=== PATIENT | male | born 1960 | race Caucasian/White ===

== ENCOUNTER 2020-12-27 09:16 | Inpatient (IN) | payer BC, MEDICAID ==
[~2020-12-27] VITALS: Ht 170.2 cm; Wt 106.3 kg
[~2020-12-27 09:16] MED LIST: heparin 10,000 units/1 ML INJ ONE; papaverine 30 mg/ml 2ml inj. ONE
[2020-12-27] MEDS ORDERED: aspirin 81mg tab.chew PO ONE (09:30)
[2020-12-27] MEDS: nitroGLYCERIN 0.4mg SUBLingual tab SL PRN (09:45)
[2020-12-27 09:52] LABS: BASOPHILS % (AUTO) 0.6 % (0-1); EOSINOPHILS # (AUTO) 0.3 X10'3 (0-0.9); EOSINOPHILS % (AUTO) 5.6 % (0-6); HEMATOCRIT 44.3 % (42.0-52.0); HEMOGLOBIN 14.6 g/dl (14.0-17.9); LYMPHOCYTES # (AUTO) 1.2 X10'3 (1.1-4.8); LYMPHOCYTES % (AUTO) 22.3 % (21-51); MEAN CORPUSCULAR HEMOGLOBIN 30.3 PG (27.0-31.0); MEAN CORPUSCULAR VOLUME 91.7 FL (78-98); MEAN PLATELET VOLUME 9.5 FL (7.4-10.4); MONOCYTES # (AUTO) 0.6 X10'3 (0-0.9); MONOCYTES % (AUTO) 10.3 % (2-12); NEUTROPHILS # (AUTO) 3.3 X10'3 (1.8-7.7); NEUTROPHILS % (AUTO) 61.2 % (42-75); PLATELET COUNT 150 X10'3 (140-440); RED BLOOD COUNT 4.83 X10'6 (4.70-6.10); RED CELL DISTRIBUTION WIDTH 14.7 % (11.5-14.5); WHITE BLOOD COUNT 5.5 X10'3 (4.5-11.0)
[2020-12-27 10:07] LABS: ALANINE AMINOTRANSFERASE 45 U/L (12-78); ALBUMIN 4.4 G/DL (3.4-5.0); ALBUMIN/GLOBULIN RATIO 1.1 (1.1-1.5); ALKALINE PHOSPHATASE 94 IU/L (46-116); ANION GAP 9 (8-16); ASPARTATE AMINO TRANSFERASE 21 U/L (10-37); BLOOD UREA NITROGEN 21 MG/DL (7-18); BUN/CREATININE RATIO 18.3 (5.4-32.0); CALCIUM 9.5 MG/DL (8.5-10.1); CHLORIDE 104 MMOL/L (99-107); CREATININE 1.15 MG/DL (0.60-1.10); GLUCOSE 115 MG/DL (70-104); POTASSIUM 4.4 MMOL/L (3.5-5.1); SODIUM 142 MMOL/L (135-145); TOTAL PROTEIN 8.5 G/DL (6.4-8.2); eGFR 65 ML/MIN
--- NOTE | 2020-12-27 10:19 | NUR ---
Pt states that he is feeling okay after the nitro. Pt stood at bedside to use the urinal without difficulty.
[2020-12-27] MEDS ORDERED: nitroGLYCERIN 0.4mg/hour patch TD ONE (10:25)
[2020-12-27] MEDS ORDERED: heparin 10,000 units/1 ML INJ IV ONE (10:25)
[2020-12-27 10:51] LABS: PARTIAL THROMBOPLASTIN TIME 27 SECONDS (22-32)
[2020-12-27] MEDS: heparin 25,000 UNIT/250ml bag 250 ML IV SCH (11:21)
[2020-12-27] MEDS ORDERED: NITR0.4T48 SL (11:27)
[2020-12-27] MEDS ORDERED: CARV6.253 PO (11:27)
[2020-12-27] MEDS ORDERED: ASPI-1475 PO (11:27)
[2020-12-27] MEDS ORDERED: ATOR-2 PO (11:27)
[2020-12-27] MEDS ORDERED: CLOP75TA34 PO (11:27)
[2020-12-27] MEDS ORDERED: FURO40TA4 PO (11:27)
[2020-12-27] MEDS ORDERED: SPIR25TA5 PO (11:27)
[2020-12-27] MEDS ORDERED: LISI10TA27 PO (11:27)
[2020-12-27] MEDS ORDERED: acetaminophen 325mg tablet PO PRN (13:55)
[2020-12-27] MEDS ORDERED: mag hydrox/Alum hydrox/simeth 30ml oral suspension PO PRN (13:55)
[2020-12-27] MEDS ORDERED: magnesium hydroxide 30ml (MOM) UD suspension PO PRN (13:55)
[2020-12-27] MEDS ORDERED: ondansetron/PF 4mg/2ml inj IV PRN (13:55)
[2020-12-27] MEDS ORDERED: morphine 2 MG/ML inj. syringe IV PRN ×2 (13:55)
[2020-12-27] MEDS ORDERED: nitroGLYCERIN 0.4mg SUBLingual tab SL PRN (14:05)
[2020-12-27] MEDS: nitroGLYCERIN-Tridil 50MG/D5W 250 ML IV SCH (14:41)
[2020-12-27] MEDS: normal saline 1000ml 1,000 ML IV SCH ×2 (14:41→23:55)
--- NOTE | 2020-12-27 14:54 | NUR ---
Nitro patch removed per Dr Samaniego when Nitro drip was started.
[2020-12-27 15:00] VITALS: BP 123/76
--- NOTE | 2020-12-27 15:20 | NUR ---
Patient brought up from ED by Renetta OROZCO. Report recieved. Patient transferred from [facility] to hospital bed. quality assurance monitor body placed onto patient. Heparin, nitro, and NS drip running per md orders. 2 RN skin check, MRSA swab, and DART completed
[2020-12-27] MEDS ORDERED: MESSAGE TO NURSING PO ONE ×4 (16:05)
[2020-12-27 17:14] LABS: HEMOGLOBIN A1C 5.5 % (4.5-6.2)
[2020-12-27 17:14] LABS: ABG BASE EXCESS -2.5 mmol/L (-2.0-2.0); ABG HCO3 21.5 mmol/L (22.0-26.0); ABG OXYGEN SATURATION 97.2 % (94-97); ABG PCO2 (T) 34.8 mmHg (35.0-48.0); ABG PO2 (T) 93.3 mmHg (75.0-100.0); ALLEN'S TEST POSITIVE; FCOHb 0.4 % (0.0-3.9); FMetHb 0.3 % (0.0-1.5); FO2Hb 96.5 % (94-97)
[2020-12-27 17:19] LABS: PARTIAL THROMBOPLASTIN TIME 36 SECONDS (22-32)
--- NOTE | 2020-12-27 17:44 | NUR ---
Paged respiratory regarding LFT's and ABG's to be done prior to CABG. Vascular also notified for US of carotid and vein mapping.
[2020-12-27 18:00] VITALS: BP 98/58
--- NOTE | 2020-12-27 18:10 | NUR ---
Preceptee documentation: I have reviewed and agree with all interventions, assessments performed and documented by ERNESTO Harrison. Preceptee Medication Administration: For this medication-pass time frame, all medication were reviewed, dispensed, administered and documented per hospital policy by ERNESTO Harrison.
--- NOTE | 2020-12-27 18:21 | NUR ---
Patient in room PCU 3018. I have received report from Kassy and had the opportunity to ask questions and assume patient care.
--- NOTE | 2020-12-27 18:30 | NUR ---
Problems reprioritized. Patient report given, questions answered & plan of care reviewed with ERNESTO Pena.
[2020-12-27] MEDS: heparin 10,000 units/1 ML INJ IV PRN ×2 (18:36→18:41)
[2020-12-27 20:00] VITALS: BP 122/84
[2020-12-27] MEDS: atorvastatin 20mg tablet PO SCH (20:14)
[2020-12-27 22:00] VITALS: BP 132/71
--- NOTE | 2020-12-27 23:18 | NUR ---
Problems reprioritized. Patient report given, questions answered & plan of care reviewed with
[2020-12-28] VITALS (8 sets, daily range): BP systolic 92–134; BP diastolic 56–79
--- NOTE | 2020-12-28 00:15 | NUR ---
I obtained patient from Jean RN at this time, patient is in stable condition and I agree with all physical assessment findings that Jean acquired.
[2020-12-28 01:03] LABS: ALBUMIN 3.4 G/DL (3.4-5.0); ANION GAP 11 (8-16); BLOOD UREA NITROGEN 30 MG/DL (7-18); BUN/CREATININE RATIO 28.3 (5.4-32.0); CALCIUM 8.8 MG/DL (8.5-10.1); CHLORIDE 104 MMOL/L (99-107); CREATININE 1.06 MG/DL (0.60-1.10); GLUCOSE 117 MG/DL (70-104); POTASSIUM 3.8 MMOL/L (3.5-5.1); SODIUM 140 MMOL/L (135-145); TOTAL CARBON DIOXIDE 24.9 MMOL/L (24-32); eGFR 71 ML/MIN
[2020-12-28 01:19] LABS: BASOPHILS % (AUTO) 0.5 % (0-1); EOSINOPHILS # (AUTO) 0.3 X10'3 (0-0.9); EOSINOPHILS % (AUTO) 4.5 % (0-6); HEMATOCRIT 37.4 % (42.0-52.0); HEMOGLOBIN 12.6 g/dl (14.0-17.9); LYMPHOCYTES # (AUTO) 1.7 X10'3 (1.1-4.8); LYMPHOCYTES % (AUTO) 29.3 % (21-51); MEAN CORPUSCULAR HEMOGLOBIN 30.6 PG (27.0-31.0); MEAN CORPUSCULAR HGB CONC 33.7 g/dL (33.0-36.5); MEAN CORPUSCULAR VOLUME 90.8 FL (78-98); MEAN PLATELET VOLUME 9.7 FL (7.4-10.4); MONOCYTES # (AUTO) 0.7 X10'3 (0-0.9); MONOCYTES % (AUTO) 11.8 % (2-12); NEUTROPHILS # (AUTO) 3.2 X10'3 (1.8-7.7); NEUTROPHILS % (AUTO) 53.9 % (42-75); PLATELET COUNT 126 X10'3 (140-440); RED BLOOD COUNT 4.12 X10'6 (4.70-6.10); RED CELL DISTRIBUTION WIDTH 14.9 % (11.5-14.5); WHITE BLOOD COUNT 5.8 X10'3 (4.5-11.0)
--- NOTE | 2020-12-28 06:00 | NUR ---
Patient in room PCU 3018. I have received report from andrew and had the opportunity to ask questions and assume patient care.
--- NOTE | 2020-12-28 06:24 | NUR ---
Problems reprioritized. Patient report given, questions answered & plan of care reviewed with Kassy Jang.
--- NOTE | 2020-12-28 06:30 | NUR ---
Patient in room PCU 3018. I have received report from ERNESTO Davis and had the opportunity to ask questions and assume patient care.
[2020-12-28] MEDS: aspirin 81mg tablet.DR PO SCH (07:13)
[2020-12-28] MEDS: lisinopril 10 MG tablet PO SCH (07:14)
[2020-12-28] MEDS: spironolactone 25 MG tablet PO SCH (07:14)
[2020-12-28] MEDS: normal saline 1000ml 1,000 ML IV SCH ×2 (09:37→12:18)
[2020-12-28] MEDS: heparin 10,000 units/1 ML INJ IV PRN ×2 (09:45→22:15)
[2020-12-28] MEDS ORDERED: MESSAGE TO NURSING PO ONE (10:00)
[2020-12-28] MEDS: nitroGLYCERIN 0.4mg SUBLingual tab SL PRN ×3 (11:13→23:00)
--- NOTE | 2020-12-28 11:30 | NUR ---
Recieved a telephone order from Salena Barfield MD, to order a MG when the next ptt is drawn at 1545.
[2020-12-28] MEDS: heparin 25,000 UNIT/250ml bag 250 ML IV SCH ×2 (13:39→14:54)
--- NOTE | 2020-12-28 18:17 | NUR ---
Patient in room PCU 3018. I have received report from Christy OROZCO and had the opportunity to ask questions and assume patient care.
[2020-12-28] MEDS: atorvastatin 20mg tablet PO SCH (20:11)
[2020-12-29] VITALS (9 sets, daily range): BP systolic 90–138; BP diastolic 48–91
[2020-12-29] MEDS: normal saline 1000ml 1,000 ML IV SCH ×2 (02:32→22:38)
[2020-12-29 06:15] LABS: BASOPHILS % (AUTO) 0.6 % (0-1); EOSINOPHILS # (AUTO) 0.3 X10'3 (0-0.9); EOSINOPHILS % (AUTO) 5.3 % (0-6); HEMATOCRIT 38.7 % (42.0-52.0); HEMOGLOBIN 12.8 g/dl (14.0-17.9); LYMPHOCYTES # (AUTO) 1.4 X10'3 (1.1-4.8); LYMPHOCYTES % (AUTO) 24.3 % (21-51); MEAN CORPUSCULAR HEMOGLOBIN 30.6 PG (27.0-31.0); MEAN CORPUSCULAR HGB CONC 33.1 g/dL (33.0-36.5); MEAN CORPUSCULAR VOLUME 92.3 FL (78-98); MEAN PLATELET VOLUME 9.8 FL (7.4-10.4); MONOCYTES # (AUTO) 0.5 X10'3 (0-0.9); MONOCYTES % (AUTO) 9.8 % (2-12); NEUTROPHILS # (AUTO) 3.3 X10'3 (1.8-7.7); PLATELET COUNT 130 X10'3 (140-440); RED BLOOD COUNT 4.19 X10'6 (4.70-6.10); RED CELL DISTRIBUTION WIDTH 15.1 % (11.5-14.5); WHITE BLOOD COUNT 5.6 X10'3 (4.5-11.0)
[2020-12-29 06:20] LABS: ALBUMIN 3.8 G/DL (3.4-5.0); ANION GAP 8 (8-16); BLOOD UREA NITROGEN 22 MG/DL (7-18); BUN/CREATININE RATIO 19.6 (5.4-32.0); CHLORIDE 106 MMOL/L (99-107); CREATININE 1.12 MG/DL (0.60-1.10); GLUCOSE 110 MG/DL (70-104); POTASSIUM 4.6 MMOL/L (3.5-5.1); SODIUM 140 MMOL/L (135-145); eGFR 67 ML/MIN
--- NOTE | 2020-12-29 06:30 | NUR ---
Patient in room PCU 3018. I have received report from ERNESTO Romero and had the opportunity to ask questions and assume patient care.
--- NOTE | 2020-12-29 06:45 | NUR ---
Problems reprioritized. Patient report given, questions answered & plan of care reviewed with Sasha OROZCO.
[2020-12-29] MEDS: nitroGLYCERIN 0.4mg SUBLingual tab SL PRN ×3 (07:25→18:44)
[2020-12-29] MEDS: lisinopril 10 MG tablet PO SCH (07:27)
[2020-12-29] MEDS: spironolactone 25 MG tablet PO SCH (07:27)
[2020-12-29] MEDS: aspirin 81mg tablet.DR PO SCH (07:27)
[2020-12-29] MEDS ORDERED: MESSAGE TO NURSING PO ONE ×2 (09:45)
--- NOTE | 2020-12-29 10:05 | NUR ---
PAGED OUT TO RT FOR PFT's. NOTIFIED RT THAT CABG MAY BE SOONER THAN WEDNESDAY.
[2020-12-29] MEDS ORDERED: ringers solution, lacted 1,000 ML IV ONE (10:55)
[2020-12-29] MEDS: heparin 25,000 UNIT/250ml bag 250 ML IV SCH ×2 (12:24→16:57)
[2020-12-29] MEDS: nitroGLYCERIN-Tridil 50MG/D5W 250 ML IV SCH (14:00)
[2020-12-29] MEDS: heparin 10,000 units/1 ML INJ IV PRN (16:55)
--- NOTE | 2020-12-29 18:11 | NUR ---
Problems reprioritized. Patient report given, questions answered & plan of care reviewed with ERNESTO Katz and ERNESTO Zepeda.
--- NOTE | 2020-12-29 18:15 | NUR ---
Patient in room PCU 3018. I have received report from ERNESTO Baez and had the opportunity to ask questions and assume patient care.
--- NOTE | 2020-12-29 18:30 | NUR ---
Patient in room PCU 3018. I have received report from Koby OROZCO and had the opportunity to ask questions and assume patient care with Gianna OROZCO
--- NOTE | 2020-12-29 18:32 | NUR ---
spoke with Dr. Barfield regarding heparin gtt. She does want it to run until surgery.
--- NOTE | 2020-12-29 18:40 | NUR ---
Problems reprioritized. Patient report given, questions answered & plan of care reviewed with ERNESTO Pena.
[2020-12-29] MEDS: mupirocin 2% nasal ointment 1gm UD NS SCH (20:51)
[2020-12-29] MEDS: atorvastatin 20mg tablet PO SCH (20:52)
[2020-12-30] VITALS (19 sets, daily range): BP systolic 94–134; BP diastolic 52–79
--- NOTE | 2020-12-30 01:25 | NUR ---
PTT 55, therapeutic. No changes to rate of heparin infusion at this time.
[2020-12-30] MEDS ORDERED: MESSAGE TO NURSING PO ONE ×2 (01:30→05:30)
[2020-12-30] MEDS: nitroGLYCERIN 0.4mg SUBLingual tab SL PRN ×3 (03:05→06:22)
[2020-12-30] MEDS ORDERED: MALTODEXTRIN/FRUCTOSE 0.68 KCAL/ML LIQUID 296ML BOTTLE PO ONE (03:30)
[2020-12-30] MEDS ORDERED: dextrose 50%-water 50ml dispensing syringe IV PRN ×2 (05:30→12:05)
[2020-12-30] MEDS ORDERED: cefazolin/dext.iso 2gm/100ml 100 ML IV ONE (05:30)
[2020-12-30] MEDS ORDERED: insulin glargine (Lantus) pen - multi-dose SQ PRN ×2 (05:30→12:05)
[2020-12-30] MEDS ORDERED: gabapentin 400mg capsule PO ONE (05:30)
[2020-12-30] MEDS ORDERED: Insulin Reg/NS 100units/100mL 100 ML IV SCH ×2 (05:30→12:05)
--- NOTE | 2020-12-30 05:33 | NUR ---
RN noted that carvedilol was on med rec but pt was not getting it here. It is coded as an allergy. Pt stated that he has only ever been allergic to penicillin and pineapple on one occasion after drinking over 20 cups of it. He has had small amounts of pineapple since with no adverse reactions.
--- NOTE | 2020-12-30 05:36 | NUR ---
PATIENT REQUESTED TO LET DAY SHIFT KNOW THAT SISTER CLEOPATRA BERMAN WILL BE IN THE PARKING LOT WAITING FOR PT TO GET OUT OF SURGERY. PT WOULD LIKE TO SEE HER WHEN HE WAKES UP. [phone] IS HER PHONE NUMBER.
--- NOTE | 2020-12-30 05:58 | NUR ---
[place]rientee documentation: I have reviewed and agree with all interventions, assessments performed and documented by Gianna OROZCO.Orientjennifer Medication Administration: For this medication-pass time frame, all medication were reviewed, dispensed, administered and documented per hospital policy by Gianna OROZCO .
[2020-12-30] MEDS ORDERED: LORazepam 2 mg/ml vial IV ONE (06:00)
[2020-12-30] MEDS ORDERED: famotidine/PF 10 mg/ml inj IV ONE (06:00)
--- NOTE | 2020-12-30 06:13 | NUR ---
Problems reprioritized. Patient report given, questions answered & plan of care reviewed with ERNESTO Baez.
--- NOTE | 2020-12-30 06:18 | NUR ---
Problems reprioritized. Patient report given, questions answered & plan of care reviewed with Koby OROZCO.
--- NOTE | 2020-12-30 06:30 | NUR ---
Patient in room PCU 3018. I have received report from Gianna RN and ERNESTO Zepeda and had the opportunity to ask questions and assume patient care.
[2020-12-30 06:35] LABS: BASOPHILS % (AUTO) 0.5 % (0-1); EOSINOPHILS # (AUTO) 0.2 X10'3 (0-0.9); EOSINOPHILS % (AUTO) 4.2 % (0-6); HEMATOCRIT 34.2 % (42.0-52.0); HEMOGLOBIN 11.5 g/dl (14.0-17.9); LYMPHOCYTES # (AUTO) 1.1 X10'3 (1.1-4.8); LYMPHOCYTES % (AUTO) 28.8 % (21-51); MEAN CORPUSCULAR HEMOGLOBIN 30.6 PG (27.0-31.0); MEAN CORPUSCULAR HGB CONC 33.7 g/dL (33.0-36.5); MEAN CORPUSCULAR VOLUME 90.8 FL (78-98); MEAN PLATELET VOLUME 9.4 FL (7.4-10.4); MONOCYTES # (AUTO) 0.4 X10'3 (0-0.9); MONOCYTES % (AUTO) 9.6 % (2-12); NEUTROPHILS # (AUTO) 2.1 X10'3 (1.8-7.7); NEUTROPHILS % (AUTO) 56.9 % (42-75); PLATELET COUNT 105 X10'3 (140-440); RED BLOOD COUNT 3.76 X10'6 (4.70-6.10); RED CELL DISTRIBUTION WIDTH 14.9 % (11.5-14.5); WHITE BLOOD COUNT 3.7 X10'3 (4.5-11.0)
[2020-12-30 06:48] LABS: ALBUMIN 3.4 G/DL (3.4-5.0); ANION GAP 10 (8-16); BLOOD UREA NITROGEN 15 MG/DL (7-18); BUN/CREATININE RATIO 13.9 (5.4-32.0); CALCIUM 8.5 MG/DL (8.5-10.1); CHLORIDE 107 MMOL/L (99-107); CREATININE 1.08 MG/DL (0.60-1.10); GLUCOSE 211 MG/DL (70-104); SODIUM 142 MMOL/L (135-145); TOTAL CARBON DIOXIDE 24.8 MMOL/L (24-32); eGFR 70 ML/MIN
[2020-12-30] MEDS ORDERED: heparin 10,000 units/1 ML INJ IR ONE (07:00)
[2020-12-30] MEDS ORDERED: papaverine 30 mg/ml 2ml inj. IA ONE (07:00)
[2020-12-30] MEDS ORDERED: protamine sulf. 10mg/ml inj. IV ONE (07:01)
[2020-12-30] MEDS ORDERED: sevoflurane 250ml liquid IH ONE (07:01)
[2020-12-30] MEDS ORDERED: DOPamine/D5W 400mg/250ml bag IV ONE (07:01)
[2020-12-30] MEDS ORDERED: MIDAZolam 1mg/ml 10ml vial ONE (07:06)
[2020-12-30] MEDS ORDERED: SUFENTANIL CITRATE 50 MCG/ML 2ml ampule IV ONE (07:06)
[2020-12-30] MEDS ORDERED: propofol inj 20 ML IV ONE (07:19)
[2020-12-30] MEDS ORDERED: rocuronium 10mg/ml inj IV ONE ×3 (07:19→11:37)
[2020-12-30] MEDS ORDERED: ePHEDrine 50MG/ML INJ. ONE (07:19)
[2020-12-30 07:55] LABS: ABG BASE EXCESS -0.8 mmol/L (-2.0-2.0); ABG HCO3 25.1 mmol/L (22.0-26.0); ABG OXYGEN SATURATION 99.7 % (94-97); ABG PCO2 46.4 mmHg (35.0-48.0); ABG PO2 346.1 mmHg (75.0-100.0); CL (ABG) 106 mmol/L (98-110); FMetHb 0.3 % (0.0-1.5); FO2Hb 98.4 % (94-97); GLUCOSE (ABG) 122 mg/dl (70-105); K (ABG) 4.1 mmol/L (3.5-5.0); TOTAL HEMOGLOBIN 12.1 G/dl (14.0-18.0)
[2020-12-30] MEDS ORDERED: calcium chloride 100 MG/1 ML inj IV ONE (08:00)
[2020-12-30] MEDS: lisinopril 10 MG tablet PO SCH (08:00)
[2020-12-30] MEDS ORDERED: albumin (human) 25% 100 ML IV solution IV ONE (08:00)
[2020-12-30] MEDS: aspirin 81mg tablet.DR PO SCH (08:00)
[2020-12-30] MEDS: mupirocin 2% nasal ointment 1gm UD NS SCH ×2 (08:00→19:33)
[2020-12-30] MEDS ORDERED: LIDOcaine 2% (20 mg/ml) 5ml cardiac syringe ONE (08:00)
[2020-12-30] MEDS ORDERED: magnesium 1 GM/2 ML inj ONE (08:00)
[2020-12-30] MEDS: spironolactone 25 MG tablet PO SCH (08:00)
[2020-12-30] MEDS ORDERED: methylPREDNISolone sod succ 1000mg vial ONE (08:00)
[2020-12-30] MEDS ORDERED: heparin 1,000 units/ml 10ml inj ONE (08:00)
[2020-12-30] MEDS ORDERED: sodium bicarbonate (8.4%) 1 mEq/ml syringe ONE (08:00)
[2020-12-30] MEDS ORDERED: aminocaproic acid 250 MG/1 ML inj. ONE (08:00)
[2020-12-30] MEDS ORDERED: heparin 10,000 units/1 ML INJ ONE (08:00)
[2020-12-30 09:26] LABS: ABG BASE EXCESS -1.7 mmol/L (-2.0-2.0); ABG OXYGEN SATURATION 99.7 % (94-97); ABG PCO2 33.1 mmHg (35.0-48.0); ABG PO2 454.3 mmHg (75.0-100.0); CL (ABG) 103 mmol/L (98-110); FCOHb 0.3 % (0.0-3.9); FMetHb 0.3 % (0.0-1.5); FO2Hb 99.1 % (94-97); GLUCOSE (ABG) 92 mg/dl (70-105); IONIZED CA (ABG) 1.06 mmol/L (1.10-1.43); K (ABG) 4.2 mmol/L (3.5-5.0)
[2020-12-30 09:56] LABS: ABG BASE EXCESS VENOUS -2.6 mmol/L; ABG HCO3 VENOUS 23.9 mmol/L; ABG PCO2 VENOUS 49.3 mmHg; ABG PO2 VENOUS 49.6 mmHg; CL (ABG) 100 mmol/L (98-110); FHHb VENOUS 17.6 %; FO2Hb VENOUS 81.4 %; GLUCOSE (ABG) 97 mg/dl (70-105); IONIZED CA (ABG) 1.15 mmol/L (1.10-1.43); K (ABG) 4.5 mmol/L (3.5-5.0); TOTAL HEMOGLOBIN 10.2 G/dl (14.0-18.0)
[2020-12-30 10:49] LABS: ABG BASE EXCESS 2.4 mmol/L (-2.0-2.0); ABG HCO3 28.1 mmol/L (22.0-26.0); ABG OXYGEN SATURATION 99.6 % (94-97); ABG PCO2 49.8 mmHg (35.0-48.0); ABG PO2 396.3 mmHg (75.0-100.0); CL (ABG) 101 mmol/L (98-110); FCOHb 0.6 % (0.0-3.9); GLUCOSE (ABG) 135 mg/dl (70-105); IONIZED CA (ABG) 1.34 mmol/L (1.10-1.43); K (ABG) 4.2 mmol/L (3.5-5.0); TOTAL HEMOGLOBIN 9.4 G/dl (14.0-18.0)
[2020-12-30 11:13] LABS: ABG BASE EXCESS VENOUS -1.6 mmol/L; ABG HCO3 VENOUS 24.3 mmol/L; ABG PCO2 VENOUS 46.2 mmHg; ABG PO2 VENOUS 41.9 mmHg; CL (ABG) 103 mmol/L (98-110); FCOHb VENOUS 1.1 %; FHHb VENOUS 25.3 %; FMetHb VENOUS 0.1 %; FO2Hb VENOUS 73.5 %; GLUCOSE (ABG) 135 mg/dl (70-105); IONIZED CA (ABG) 1.19 mmol/L (1.10-1.43); K (ABG) 4.5 mmol/L (3.5-5.0); TOTAL HEMOGLOBIN 9.5 G/dl (14.0-18.0)
[2020-12-30 11:17] LABS: ACTIVATED CLOTTING TIME 139 SEC (101-148)
[2020-12-30] MEDS ORDERED: sodium phosphate inj. 15 MMOL in dextrose 5%-water 250 ML IV PRN (12:05)
[2020-12-30] MEDS ORDERED: DOPamine 400mg/D5W 250ml 250 ML IV PRN (12:05)
[2020-12-30] MEDS ORDERED: morphine 4 MG/ML inj SYRINge IV PRN (12:05)
[2020-12-30] MEDS ORDERED: potassium Cl 40MEQ/250ML bag 250 ML IV PRN (12:05)
[2020-12-30] MEDS ORDERED: niCARDipine-NS 40mg/200ml IVPB 200 ML IV PRN (12:05)
[2020-12-30] MEDS ORDERED: albumin (Human) 5% 250ml 250 ML IV PRN (12:05)
[2020-12-30] MEDS ORDERED: magnesium 4gm in 100ml NS 100 ML IV PRN (12:05)
[2020-12-30] MEDS ORDERED: pantoprazole 40 MG vial IV ONE (12:05)
[2020-12-30] MEDS ORDERED: Neutra Phos packet PO PRN (12:05)
[2020-12-30] MEDS ORDERED: bisacodyl 10mg suppository rectal RC PRN (12:05)
[2020-12-30] MEDS ORDERED: potassium Cl 40MEQ/1/2NS 520ml 520 ML IV PRN (12:05)
[2020-12-30] MEDS ORDERED: potassium CL 10mEq/100ml bag 100 ML IV PRN (12:05)
[2020-12-30] MEDS ORDERED: magnesium citrate 296ml oral solution PO PRN (12:05)
[2020-12-30] MEDS ORDERED: mineral oil 133ml enema RC PRN (12:05)
[2020-12-30] MEDS ORDERED: magnesium hydroxide 30ml (MOM) UD suspension PO PRN (12:05)
[2020-12-30] MEDS ORDERED: metoclopramide 5 mg/ml inj IV PRN (12:05)
[2020-12-30] MEDS ORDERED: normal saline 250ml IV soln 250 ML IV PRN (12:05)
[2020-12-30] MEDS ORDERED: acetaminophen 325mg tablet PO PRN ×2 (12:05)
[2020-12-30] MEDS ORDERED: sodium phosphate inj. 30 MMOL in dextrose 5%-water 250 ML IV PRN (12:05)
[2020-12-30] MEDS ORDERED: ondansetron/PF 4mg/2ml inj IV PRN (12:05)
[2020-12-30] MEDS ORDERED: potassium Cl 20 mEq SR tablet PO PRN (12:05)
[2020-12-30] MEDS ORDERED: nitroGLYCERIN-Tridil 50MG/D5W 250 ML IV PRN (12:05)
--- NOTE | 2020-12-30 12:15 | NUR ---
Received to room , accompanied by MD Barfield and CELINA Cronin and surgical crew. Placed on ventilator, to library assistant, arterial line and PA line pressure monitored. Chest tubes to suction at 20 cm. Gastelum cath to gravity drainage. Dressings are dry and intact. See assessment record. All vasoactive drugs (Dopamine) are infusing via central line.
--- NOTE | 2020-12-30 12:16 | NUR ---
CABG Consult: Pt s/p CABGx3; would benefit from CABG/HH diet eds once stable as medically indicated post-op. Addendum: 12/30/20 at [address] Amended: Links added.
[2020-12-30 12:24] LABS: BASOPHILS % (AUTO) 0.2 % (0-1); EOSINOPHILS % (AUTO) 0.6 % (0-6); HEMOGLOBIN 13.4 g/dl (14.0-17.9); LYMPHOCYTES # (AUTO) 0.5 X10'3 (1.1-4.8); LYMPHOCYTES % (AUTO) 6.8 % (21-51); MEAN CORPUSCULAR HEMOGLOBIN 30.4 PG (27.0-31.0); MEAN CORPUSCULAR HGB CONC 32.7 g/dL (33.0-36.5); MEAN CORPUSCULAR VOLUME 92.8 FL (78-98); MEAN PLATELET VOLUME 9.5 FL (7.4-10.4); MONOCYTES # (AUTO) 0.4 X10'3 (0-0.9); MONOCYTES % (AUTO) 6.4 % (2-12); NEUTROPHILS # (AUTO) 5.9 X10'3 (1.8-7.7); PLATELET COUNT 89 X10'3 (140-440); RED BLOOD COUNT 4.42 X10'6 (4.70-6.10); RED CELL DISTRIBUTION WIDTH 15.2 % (11.5-14.5); WHITE BLOOD COUNT 6.9 X10'3 (4.5-11.0)
[2020-12-30 12:25] LABS: ABG HCO3 23.1 mmol/L (22.0-26.0); ABG OXYGEN SATURATION 95.4 % (94-97); ABG PCO2 (T) 44.9 mmHg (35.0-48.0); ABG PO2 (T) 83.2 mmHg (75.0-100.0); FCOHb 0.7 % (0.0-3.9); FMetHb 0.5 % (0.0-1.5); FO2Hb 94.3 % (94-97); PATIENT TEMPERATURE 36.8; PEEP 5 cm H2O; RESPIRATORY RATE 12 b/min; TIDAL VOLUME 706 mL
[2020-12-30 12:37] LABS: PARTIAL THROMBOPLASTIN TIME 30 SECONDS (22-32)
[2020-12-30 12:39] LABS: ALANINE AMINOTRANSFERASE 48 U/L (12-78); ALBUMIN 3.5 G/DL (3.4-5.0); ALBUMIN/GLOBULIN RATIO 1.5 (1.1-1.5); ALKALINE PHOSPHATASE 55 IU/L (46-116); ANION GAP 10 (8-16); ASPARTATE AMINO TRANSFERASE 99 U/L (10-37); BILIRUBIN,TOTAL 1.4 MG/DL (0.1-1.0); BLOOD UREA NITROGEN 15 MG/DL (7-18); BUN/CREATININE RATIO 14.2 (5.4-32.0); CALCIUM 9.2 MG/DL (8.5-10.1); CHLORIDE 106 MMOL/L (99-107); CREATININE 1.06 MG/DL (0.60-1.10); GLUCOSE 162 MG/DL (70-104); MAGNESIUM 2.6 MG/DL (1.5-2.4); PHOSPHORUS 2.6 MG/DL (2.3-4.5); SODIUM 142 MMOL/L (135-145); TOTAL CARBON DIOXIDE 26.4 MMOL/L (24-32); TOTAL PROTEIN 5.9 G/DL (6.4-8.2); eGFR 71 ML/MIN
[2020-12-30 12:41] LABS: POTASSIUM 4.4 MMOL/L (3.5-5.1)
[2020-12-30] MEDS: gabapentin 300mg capsule PO SCH ×2 (13:11→20:52)
[2020-12-30] MEDS: potassium Cl 20mEq/100mL bag 100 ML IV PRN ×2 (13:13→14:09)
[2020-12-30] MEDS: sodium chloride 0.45% 1,000 ML IV SCH (13:26)
[2020-12-30] MEDS: morphine 4 MG/ML inj SYRINge IV PRN ×3 (14:01→19:30)
--- NOTE | 2020-12-30 14:32 | NUR ---
Sister Joy in to see pt. briefly.
[2020-12-30] MEDS: ceFAZolin/D5W- 1GM premix 50 ML IV SCH (15:24)
--- NOTE | 2020-12-30 16:24 | NUR ---
Pt. medicated with Morphine twice since surgery. Awake and wanting to try weaning parameters. Sp02 94% on 40% Fi02. Rt notified and on her way to see pt.
--- NOTE | 2020-12-30 18:13 | NUR ---
Problems reprioritized. Patient report given, questions answered & plan of care reviewed with Kendy OROZCO.
--- NOTE | 2020-12-30 18:30 | NUR ---
Patient in room ICU 2044. I have received report from ERNESTO Yoder and had the opportunity to ask questions and assume patient care.
[2020-12-30 18:53] LABS: BASOPHILS % (AUTO) 0 % (0-1); EOSINOPHILS % (AUTO) 0.1 % (0-6); HEMATOCRIT 37.3 % (42.0-52.0); HEMOGLOBIN 12.5 g/dl (14.0-17.9); LYMPHOCYTES # (AUTO) 0.4 X10'3 (1.1-4.8); LYMPHOCYTES % (AUTO) 3.6 % (21-51); MEAN CORPUSCULAR HEMOGLOBIN 30.4 PG (27.0-31.0); MEAN CORPUSCULAR HGB CONC 33.5 g/dL (33.0-36.5); MEAN CORPUSCULAR VOLUME 90.7 FL (78-98); MEAN PLATELET VOLUME 9.3 FL (7.4-10.4); MONOCYTES # (AUTO) 0.5 X10'3 (0-0.9); MONOCYTES % (AUTO) 5.4 % (2-12); NEUTROPHILS % (AUTO) 90.9 % (42-75); PLATELET COUNT 99 X10'3 (140-440); RED BLOOD COUNT 4.11 X10'6 (4.70-6.10); RED CELL DISTRIBUTION WIDTH 14.8 % (11.5-14.5); WHITE BLOOD COUNT 9.9 X10'3 (4.5-11.0)
[2020-12-30 18:56] LABS: ALBUMIN 3.7 G/DL (3.4-5.0); ANION GAP 12 (8-16); BLOOD UREA NITROGEN 16 MG/DL (7-18); BUN/CREATININE RATIO 11.8 (5.4-32.0); CALCIUM 8.5 MG/DL (8.5-10.1); CHLORIDE 107 MMOL/L (99-107); CREATININE 1.36 MG/DL (0.60-1.10); GLUCOSE 146 MG/DL (70-104); MAGNESIUM 2.3 MG/DL (1.5-2.4); PHOSPHORUS 3.6 MG/DL (2.3-4.5); POTASSIUM 4.8 MMOL/L (3.5-5.1); SODIUM 144 MMOL/L (135-145); TOTAL CARBON DIOXIDE 24.8 MMOL/L (24-32); eGFR 53 ML/MIN
[2020-12-30] MEDS: sennosides/docusate sodium tablet PO SCH (19:33)
[2020-12-30] MEDS: vancomycin/NS 1 GM ADD-VANTAGE 250 ML IV SCH (19:33)
[2020-12-30] MEDS: atorvastatin 10mg tablet PO SCH (20:52)
[2020-12-30] MEDS: magnesium 2GM in 50ml NS 50 ML IV PRN (20:52)
[2020-12-30 21:31] LABS: ABG BASE EXCESS -3.5 mmol/L (-2.0-2.0); ABG HCO3 21.8 mmol/L (22.0-26.0); ABG OXYGEN SATURATION 89.5 % (94-97); ABG PCO2 (T) 40.5 mmHg (35.0-48.0); ABG PO2 (T) 60.2 mmHg (75.0-100.0); FCOHb 0.3 % (0.0-3.9); FMetHb 0.4 % (0.0-1.5); FO2Hb 88.9 % (94-97); PATIENT TEMPERATURE 37.3; PEEP 5 cm H2O; TOTAL HEMOGLOBIN 13.1 G/dl (14.0-18.0)
[2020-12-30] MEDS: albuterol 2.5 MG/3 ML nebule NEB PRN (21:57)
[2020-12-31] VITALS (24 sets, daily range): BP systolic 104–151; BP diastolic 63–93
[2020-12-31] MEDS: ceFAZolin/D5W- 1GM premix 50 ML IV SCH ×4 (00:37→23:55)
[2020-12-31] MEDS: morphine 4 MG/ML inj SYRINge IV PRN ×2 (00:59→03:04)
[2020-12-31 03:07] LABS: BASOPHILS % (AUTO) 0 % (0-1); EOSINOPHILS % (AUTO) 0.1 % (0-6); HEMATOCRIT 34.4 % (42.0-52.0); HEMOGLOBIN 11.4 g/dl (14.0-17.9); LYMPHOCYTES # (AUTO) 0.4 X10'3 (1.1-4.8); LYMPHOCYTES % (AUTO) 3.8 % (21-51); MEAN CORPUSCULAR HEMOGLOBIN 30.5 PG (27.0-31.0); MEAN CORPUSCULAR HGB CONC 33.2 g/dL (33.0-36.5); MEAN CORPUSCULAR VOLUME 91.8 FL (78-98); MEAN PLATELET VOLUME 9.5 FL (7.4-10.4); MONOCYTES # (AUTO) 0.6 X10'3 (0-0.9); MONOCYTES % (AUTO) 6.2 % (2-12); NEUTROPHILS # (AUTO) 8.5 X10'3 (1.8-7.7); NEUTROPHILS % (AUTO) 89.9 % (42-75); PLATELET COUNT 87 X10'3 (140-440); RED BLOOD COUNT 3.74 X10'6 (4.70-6.10); RED CELL DISTRIBUTION WIDTH 15.6 % (11.5-14.5); WHITE BLOOD COUNT 9.4 X10'3 (4.5-11.0)
[2020-12-31 03:10] LABS: PARTIAL THROMBOPLASTIN TIME 28 SECONDS (22-32)
[2020-12-31 03:17] LABS: ALANINE AMINOTRANSFERASE 77 U/L (12-78); ALBUMIN 3.5 G/DL (3.4-5.0); ALBUMIN/GLOBULIN RATIO 1.3 (1.1-1.5); ALKALINE PHOSPHATASE 53 IU/L (46-116); ANION GAP 11 (8-16); ASPARTATE AMINO TRANSFERASE 256 U/L (10-37); BILIRUBIN,TOTAL 1.1 MG/DL (0.1-1.0); BLOOD UREA NITROGEN 20 MG/DL (7-18); BUN/CREATININE RATIO 15.4 (5.4-32.0); CHLORIDE 108 MMOL/L (99-107); GLUCOSE 136 MG/DL (70-104); MAGNESIUM 2.5 MG/DL (1.5-2.4); PHOSPHORUS 4.1 MG/DL (2.3-4.5); POTASSIUM 4.9 MMOL/L (3.5-5.1); SODIUM 143 MMOL/L (135-145); TOTAL CARBON DIOXIDE 24.1 MMOL/L (24-32); TOTAL PROTEIN 6.1 G/DL (6.4-8.2); eGFR 56 ML/MIN
[2020-12-31 03:24] LABS: CALCIUM 8.3 MG/DL (8.5-10.1)
--- NOTE | 2020-12-31 06:00 | NUR ---
Despite several reminders of keeping sternal precautions patient continues to move around abruptly and reposition by pulling on side rails. Will report to day shift RN to continue education of importance of keeping sternal precautions.
--- NOTE | 2020-12-31 06:12 | NUR ---
Problems reprioritized. Patient report given, questions answered & plan of care reviewed with ERNESTO Yoder.
--- NOTE | 2020-12-31 06:28 | NUR ---
Patient in room ICU 2044. I have received report from Kendy OROZCO and had the opportunity to ask questions and assume patient care. Addendum: 12/31/20 at 0672 by Beba Taylor RN Amended: Links added.
[2020-12-31] MEDS: sennosides/docusate sodium tablet PO SCH ×2 (07:00→20:00)
[2020-12-31] MEDS: mupirocin 2% nasal ointment 1gm UD NS SCH ×2 (07:00→20:48)
[2020-12-31] MEDS: gabapentin 300mg capsule PO SCH ×3 (07:00→20:48)
[2020-12-31] MEDS: aspirin 325mg tablet, delayed-release (Ecotrin) PO SCH (07:04)
[2020-12-31] MEDS: metoprolol tartrate 12.5mg (1/2 tablet) PO SCH ×2 (07:05→20:48)
[2020-12-31] MEDS: HYDROcodone/acetaminophen 10/325mg tab PO PRN ×3 (07:13→23:55)
[2020-12-31] MEDS: vancomycin/NS 1 GM ADD-VANTAGE 250 ML IV SCH ×2 (07:50→20:48)
[2020-12-31] MEDS ORDERED: pantoprazole 40mg Tablet.DR PO ONE (08:35)
[2020-12-31] MEDS ORDERED: ALPRAZolam 0.25mg tablet PO PRN (08:45)
[2020-12-31] MEDS ORDERED: dextrose ORAL solution 15 GM/59 ML bottle PO PRN ×2 (09:15)
[2020-12-31] MEDS ORDERED: glucagon, human recombinant 1mg kit SUBCUT PRN (09:15)
[2020-12-31] MEDS ORDERED: dextrose 50%-water 50ml dispensing syringe IV PRN ×2 (09:15)
--- NOTE | 2020-12-31 11:37 | NUR ---
Initial: Pt admit for NSTEMI and severe CAD. Pt POD # 1 s/p CABG x 3. Attempted bedside visit for nutrition therapy educations however pt sleeping. Will attempt education at another time. Pt with 100% PO intake on heart healthy diet prior to surgery and with 25% PO intake on full liquid diet this morning. Pt now on a no concentrated sweets diet, pending documentation of PO intake since diet advancement. LBM 12/29, receiving routine bowel care with additional PRN bowel care available. No nutrition intervention implemented at this time. Will continue to follow and monitor need for ONS/additional protein post-op pending further trends in PO intake. Recommendations: 1) Advance to heart healthy diet as medically indicated 2) Monitor need for ONS/additional protein 3) Routine bowel care 4) Scaled weights per rx 5) CABG/heart healthy nutrition therapy educations once stable Addendum: 12/31/20 at [address] Amended: Links added.
[2020-12-31] MEDS: lisinopril 5mg tablet PO SCH (11:47)
[2020-12-31] MEDS ORDERED: calcium carbonate 500mg chew tablet PO SCH (12:30)
--- NOTE | 2020-12-31 15:17 | NUR ---
Sumanth gonzalez lab nurse here to perform ACT and pull right kiesha sheath is ACT is WNL. Addendum: 12/31/20 at 1519 by Beba Taylor RN error-wrong pt.
[2020-12-31] MEDS ORDERED: calcium carbonate 500mg chew tablet PO PRN (16:10)
--- NOTE | 2020-12-31 18:14 | NUR ---
Problems reprioritized. Patient report given, questions answered & plan of care reviewed with Martita OROZCO.
--- NOTE | 2020-12-31 19:36 | NUR ---
183: Patient in room ICU 2044. I have received report from Beba OROZCO and had the opportunity to ask questions and assume patient care. 1935: Patient impulsive,attempting to get out of bed without assistance. Not following sternal precautions despite frequent reminders. Requiring close monitoring. Addendum: 12/31/20 at 1938 by Martita Coffey RN Amended: Links added.
[2020-12-31] MEDS: heparin, porcine 5000 units/ml vial SQ SCH (20:00)
[2020-12-31] MEDS: atorvastatin 10mg tablet PO SCH (20:49)
[2021-01-01] VITALS (24 sets, daily range): BP systolic 94–159; BP diastolic 53–83
--- NOTE | 2021-01-01 03:23 | NUR ---
Patient appears to be sleeping. Will continue to monitor closely
[2021-01-01 03:26] LABS: BASOPHILS % (AUTO) 0 % (0-1); EOSINOPHILS % (AUTO) 0 % (0-6); HEMATOCRIT 27.8 % (42.0-52.0); HEMOGLOBIN 9.1 g/dl (14.0-17.9); LYMPHOCYTES # (AUTO) 0.5 X10'3 (1.1-4.8); LYMPHOCYTES % (AUTO) 4.5 % (21-51); MEAN CORPUSCULAR HEMOGLOBIN 30.2 PG (27.0-31.0); MEAN CORPUSCULAR HGB CONC 32.6 g/dL (33.0-36.5); MEAN CORPUSCULAR VOLUME 92.6 FL (78-98); MEAN PLATELET VOLUME 9.3 FL (7.4-10.4); MONOCYTES # (AUTO) 1.4 X10'3 (0-0.9); MONOCYTES % (AUTO) 11.6 % (2-12); NEUTROPHILS # (AUTO) 10.1 X10'3 (1.8-7.7); NEUTROPHILS % (AUTO) 83.9 % (42-75); PLATELET COUNT 84 X10'3 (140-440); RED CELL DISTRIBUTION WIDTH 15.6 % (11.5-14.5)
[2021-01-01 03:33] LABS: ANION GAP 6 (8-16); BLOOD UREA NITROGEN 37 MG/DL (7-18); BUN/CREATININE RATIO 28.5 (5.4-32.0); CALCIUM 7.5 MG/DL (8.5-10.1); CHLORIDE 103 MMOL/L (99-107); GLUCOSE 149 MG/DL (70-104); MAGNESIUM 2.3 MG/DL (1.5-2.4); PHOSPHORUS 3.3 MG/DL (2.3-4.5); POTASSIUM 5.4 MMOL/L (3.5-5.1); SODIUM 136 MMOL/L (135-145); TOTAL CARBON DIOXIDE 26.8 MMOL/L (24-32); eGFR 56 ML/MIN
[2021-01-01] MEDS: magnesium 2GM in 50ml NS 50 ML IV PRN (05:26)
[2021-01-01] MEDS: HYDROcodone/acetaminophen 10/325mg tab PO PRN ×4 (05:26→18:28)
--- NOTE | 2021-01-01 05:39 | NUR ---
Support vest placed. Up to chair w/ 2 person assist. Tolerated well. Using IS and Flutter valve independently. Mohawk given for pain level of 4-6 per patient statement.
--- NOTE | 2021-01-01 06:24 | NUR ---
Problems reprioritized. Patient report given, questions answered & plan of care reviewed with Josee OROZCO.
--- NOTE | 2021-01-01 06:34 | NUR ---
Patient in room ICU 2044. I have received report from Martita OROZCO and had the opportunity to ask questions and assume patient care.
[2021-01-01] MEDS: sennosides/docusate sodium tablet PO SCH ×2 (07:39→18:41)
[2021-01-01] MEDS: gabapentin 300mg capsule PO SCH (07:39)
[2021-01-01] MEDS: aspirin 325mg tablet, delayed-release (Ecotrin) PO SCH (07:39)
[2021-01-01] MEDS: pantoprazole 40mg Tablet.DR PO SCH (07:39)
[2021-01-01] MEDS: mupirocin 2% nasal ointment 1gm UD NS SCH (07:39)
[2021-01-01] MEDS: metoprolol tartrate 12.5mg (1/2 tablet) PO SCH ×2 (07:43→18:41)
[2021-01-01] MEDS: lisinopril 5mg tablet PO SCH (07:43)
[2021-01-01] MEDS: heparin, porcine 5000 units/ml vial SQ SCH ×2 (07:44→18:42)
[2021-01-01] MEDS ORDERED: furosemide 40mg/4ml inj IV ONE (08:40)
[2021-01-01] MEDS: sodium chloride 0.45% 1,000 ML IV SCH (12:05)
--- NOTE | 2021-01-01 18:12 | NUR ---
Patient report given, questions answered & plan of care reviewed with Theodore OROZCO.
[2021-01-01 18:21] LABS: ALANINE AMINOTRANSFERASE 61 U/L (12-78); ALBUMIN 3.2 G/DL (3.4-5.0); ALKALINE PHOSPHATASE 53 IU/L (46-116); ANION GAP 4 (8-16); ASPARTATE AMINO TRANSFERASE 102 U/L (10-37); BILIRUBIN,TOTAL 0.8 MG/DL (0.1-1.0); BLOOD UREA NITROGEN 41 MG/DL (7-18); CHLORIDE 103 MMOL/L (99-107); CREATININE 1.17 MG/DL (0.60-1.10); GLUCOSE 159 MG/DL (70-104); MAGNESIUM 2.9 MG/DL (1.5-2.4); PHOSPHORUS 2.8 MG/DL (2.3-4.5); SODIUM 137 MMOL/L (135-145); TOTAL CARBON DIOXIDE 29.6 MMOL/L (24-32); TOTAL PROTEIN 6.4 G/DL (6.4-8.2); eGFR 64 ML/MIN
[2021-01-01] MEDS: atorvastatin 10mg tablet PO SCH (18:41)
[2021-01-01] MEDS ORDERED: insulin Lispro (HumaLOG) vial - multi-dose SQ SCH (20:55)
[2021-01-01] MEDS ORDERED: dextrose 50%-water 50ml dispensing syringe IV PRN ×2 (20:55)
[2021-01-01] MEDS ORDERED: glucagon, human recombinant 1mg kit SUBCUT PRN (20:55)
[2021-01-01] MEDS ORDERED: MESSAGE TO PHARMACY PO ONE (20:55)
[2021-01-01] MEDS ORDERED: dextrose ORAL solution 15 GM/59 ML bottle PO PRN ×2 (20:55)
[2021-01-01] MEDS ORDERED: insulin glargine (Lantus) pen - multi-dose SQ SCH (21:00)
[2021-01-01] MEDS: insulin Lispro (HumaLOG) vial - multi-dose SQ SCH (21:41)
[2021-01-02] VITALS (20 sets, daily range): BP systolic 101–150; BP diastolic 62–87
[2021-01-02] MEDS: HYDROcodone/acetaminophen 10/325mg tab PO PRN ×3 (01:22→13:20)
[2021-01-02] MEDS: albuterol 2.5 MG/3 ML nebule NEB PRN (03:24)
[2021-01-02 04:25] LABS: BASOPHILS % (AUTO) 0 % (0-1); EOSINOPHILS % (AUTO) 0.1 % (0-6); HEMATOCRIT 28.1 % (42.0-52.0); HEMOGLOBIN 9.4 g/dl (14.0-17.9); LYMPHOCYTES # (AUTO) 0.6 X10'3 (1.1-4.8); LYMPHOCYTES % (AUTO) 6.6 % (21-51); MEAN CORPUSCULAR HEMOGLOBIN 30.7 PG (27.0-31.0); MEAN CORPUSCULAR HGB CONC 33.4 g/dL (33.0-36.5); MEAN CORPUSCULAR VOLUME 91.9 FL (78-98); MEAN PLATELET VOLUME 9.3 FL (7.4-10.4); MONOCYTES # (AUTO) 1.3 X10'3 (0-0.9); MONOCYTES % (AUTO) 14.1 % (2-12); NEUTROPHILS # (AUTO) 7.6 X10'3 (1.8-7.7); NEUTROPHILS % (AUTO) 79.2 % (42-75); PLATELET COUNT 95 X10'3 (140-440); RED BLOOD COUNT 3.06 X10'6 (4.70-6.10); RED CELL DISTRIBUTION WIDTH 15.9 % (11.5-14.5); WHITE BLOOD COUNT 9.6 X10'3 (4.5-11.0)
[2021-01-02 04:33] LABS: ALBUMIN 3.2 G/DL (3.4-5.0); ANION GAP 5 (8-16); BLOOD UREA NITROGEN 40 MG/DL (7-18); BUN/CREATININE RATIO 38.5 (5.4-32.0); CALCIUM 7.9 MG/DL (8.5-10.1); CHLORIDE 102 MMOL/L (99-107); CREATININE 1.04 MG/DL (0.60-1.10); GLUCOSE 131 MG/DL (70-104); MAGNESIUM 2.9 MG/DL (1.5-2.4); PHOSPHORUS 2.8 MG/DL (2.3-4.5); SODIUM 136 MMOL/L (135-145); TOTAL CARBON DIOXIDE 29.4 MMOL/L (24-32); eGFR 73 ML/MIN
[2021-01-02] MEDS: pantoprazole 40mg Tablet.DR PO SCH (07:08)
[2021-01-02] MEDS: aspirin 81mg tablet.DR PO SCH (07:09)
[2021-01-02] MEDS: lisinopril 5mg tablet PO SCH (07:09)
[2021-01-02] MEDS: sennosides/docusate sodium tablet PO SCH ×2 (07:09→20:57)
[2021-01-02] MEDS: metoprolol tartrate 12.5mg (1/2 tablet) PO SCH ×2 (07:09→20:57)
[2021-01-02] MEDS: heparin, porcine 5000 units/ml vial SQ SCH ×2 (07:10→20:00)
[2021-01-02] MEDS ORDERED: magnesium 2GM in 50ml NS 50 ML IV PRN (08:15)
[2021-01-02] MEDS ORDERED: potassium CL 10mEq/100ml bag 100 ML IV PRN (08:15)
[2021-01-02] MEDS ORDERED: potassium Cl 20mEq/100mL bag 100 ML IV PRN (08:15)
[2021-01-02] MEDS ORDERED: potassium Cl 20 mEq SR tablet PO PRN (08:15)
[2021-01-02] MEDS ORDERED: magnesium 4gm in 100ml NS 100 ML IV PRN (08:15)
[2021-01-02] MEDS ORDERED: potassium Cl 40MEQ/250ML bag 250 ML IV PRN (08:15)
[2021-01-02] MEDS ORDERED: potassium Cl 40MEQ/1/2NS 520ml 520 ML IV PRN (08:15)
[2021-01-02] MEDS: insulin Lispro (HumaLOG) vial - multi-dose SQ SCH ×2 (08:35→13:19)
[2021-01-02] MEDS ORDERED: furosemide 40mg/4ml inj IV ONE (09:00)
--- NOTE | 2021-01-02 11:30 | NUR ---
Patient passing lots of gas with multiple "false alarms." Patient requesting to not have more bowel care at this time. Patient has had MOM and MagCitrate.
--- NOTE | 2021-01-02 11:34 | NUR ---
F/u 01/02: Pt seen by JOSE for written/verbal CABG/HH diet eds w/ RD contact information provided. Pt is agreeable to richard PACHECO for wound healing; CELINA notified. Addendum: 01/02/21 at [address] Amended: Links added.
[2021-01-02] MEDS: JUVEN Smoothie Arginine/Glut./Ca2+Bmb (Juven 19.3pkt) 240ml cup PO SCH ×2 (12:30→17:30)
--- NOTE | 2021-01-02 16:05 | NUR ---
Received report from Cecilio in ICU - pt in W/C was able to transfer to bedside chair with minimal assistance. Pain of 1/10 - no pain meds at this time per pt. Pt wants to sit in chair for now. Safety measures in place, bed in lowest position, call light and personal belongings within reach. Will continue to monitor.
--- NOTE | 2021-01-02 16:55 | NUR ---
Patient transferred to ACCE unit via wheelchair with all belongings. Transferred to chair and placed on bedside monitor. Report given to Gloria OROZCO with all questions answered.
--- NOTE | 2021-01-02 18:15 | NUR ---
Problems reprioritized. Patient report given, questions answered & plan of care reviewed with ERNESTO Garcia.
--- NOTE | 2021-01-02 18:16 | NUR ---
Patient in room MED 307. I have received report from Gloria OROZCO and had the opportunity to ask questions and assume patient care with Rolando OROZCO.
[2021-01-02] MEDS: potassium Cl 20 mEq SR tablet PO SCH (20:00)
[2021-01-02] MEDS: magnesium Cl slow-release 64mg tablet PO SCH (20:00)
[2021-01-02] MEDS: atorvastatin 10mg tablet PO SCH (20:56)
--- NOTE | 2021-01-02 21:24 | NUR ---
Spoke with Mehrdad PATRICK via telephone regarding Heparin KEENAN. Laura comfortable holding dose of Heparin for platelets 95,000.
[2021-01-03] MEDS: HYDROcodone/acetaminophen 10/325mg tab PO PRN (00:49)
[2021-01-03 02:00] VITALS: BP 120/69
--- NOTE | 2021-01-03 05:30 | NUR ---
Shift note: Patient slept off and on during the night, awake most of the night. Patient was up to the chair around 0200 and then back to bed. Patient relates he no longer wants the Ceres because it's giving him "weird dreams" or "hallucinations of people throwing a ball". Patient relates he feels "weird with all the drugs". Will continue to monitor and report to the day shift nurse.
[2021-01-03 06:00] VITALS: BP 156/89
--- NOTE | 2021-01-03 06:00 | NUR ---
Patient in room MED 307. I have received report from ERNESTO Garcia and had the opportunity to ask questions and assume patient care.
--- NOTE | 2021-01-03 06:14 | NUR ---
Problems reprioritized. Patient report given, questions answered & plan of care reviewed with Gloria OROZCO.
[2021-01-03 07:07] LABS: BASOPHILS % (AUTO) 0.1 % (0-1); EOSINOPHILS # (AUTO) 0.1 X10'3 (0-0.9); EOSINOPHILS % (AUTO) 1.1 % (0-6); HEMATOCRIT 27.8 % (42.0-52.0); HEMOGLOBIN 9.4 g/dl (14.0-17.9); MEAN CORPUSCULAR HGB CONC 33.7 g/dL (33.0-36.5); NEUTROPHILS # (AUTO) 4.4 X10'3 (1.8-7.7); NEUTROPHILS % (AUTO) 67.8 % (42-75); PLATELET COUNT 105 X10'3 (140-440); RED BLOOD COUNT 3.02 X10'6 (4.70-6.10); RED CELL DISTRIBUTION WIDTH 15.6 % (11.5-14.5); WHITE BLOOD COUNT 6.5 X10'3 (4.5-11.0)
[2021-01-03 07:32] LABS: ALBUMIN 2.8 G/DL (3.4-5.0); ANION GAP 7 (8-16); BLOOD UREA NITROGEN 35 MG/DL (7-18); BUN/CREATININE RATIO 34.3 (5.4-32.0); CHLORIDE 103 MMOL/L (99-107); CREATININE 1.02 MG/DL (0.60-1.10); GLUCOSE 104 MG/DL (70-104); POTASSIUM 4.7 MMOL/L (3.5-5.1); SODIUM 139 MMOL/L (135-145); TOTAL CARBON DIOXIDE 29.2 MMOL/L (24-32); eGFR 74 ML/MIN
[2021-01-03] MEDS: lisinopril 5mg tablet PO SCH ×3 (07:34→20:14)
[2021-01-03] MEDS: sennosides/docusate sodium tablet PO SCH ×2 (07:34→20:00)
[2021-01-03] MEDS: metoprolol tartrate 12.5mg (1/2 tablet) PO SCH (07:34)
[2021-01-03] MEDS: aspirin 81mg tablet.DR PO SCH (07:34)
[2021-01-03] MEDS: pantoprazole 40mg Tablet.DR PO SCH (07:34)
[2021-01-03] MEDS: potassium Cl 20 mEq SR tablet PO SCH ×2 (08:00→20:00)
[2021-01-03] MEDS: magnesium Cl slow-release 64mg tablet PO SCH ×2 (08:00→20:00)
[2021-01-03] MEDS ORDERED: LOP12.5T PO ×2 (08:42→08:45)
[2021-01-03] MEDS ORDERED: HYDR-3972 PO (08:42)
--- NOTE | 2021-01-03 08:48 | NUR ---
Pt had a run of [facility] at 0843 - pt rocío fisher. Monitoring
--- NOTE | 2021-01-03 09:09 | NUR ---
SUJEY collier 01/02/21 @ 1230 in [facility] - missed dose as patient was NOT on our unit at this time.
--- NOTE | 2021-01-03 09:16 | NUR ---
Zestril 10 mg 01/03/21 @ 0840 - ok to non-adminster lei [place] as he already got his 5mg this AM.
[2021-01-03 10:00] VITALS: BP 108/69
[2021-01-03] MEDS: heparin, porcine 5000 units/ml vial SQ SCH ×2 (10:38→20:00)
[2021-01-03] MEDS: furosemide 40mg tablet PO SCH (10:38)
--- NOTE | 2021-01-03 10:39 | NUR ---
Per MD Ryan waters to administer heparin - Plt 105
[2021-01-03] MEDS: JUVEN Smoothie Arginine/Glut./Ca2+Bmb (Juven 19.3pkt) 240ml cup PO SCH ×2 (12:30→17:30)
[2021-01-03 14:00] VITALS: BP 127/64
[2021-01-03 18:00] VITALS: BP 117/70
--- NOTE | 2021-01-03 18:42 | NUR ---
Problems reprioritized. Patient report given, questions answered & plan of care reviewed with ERNESTO Vasques.
--- NOTE | 2021-01-03 18:45 | NUR ---
Patient in room MED 307. I have received report from Gloria OROZCO and had the opportunity to ask questions and assume patient care.
--- NOTE | 2021-01-03 19:30 | NUR ---
Called rapid response for patient with heart rate in thr 170s. patient had afib with uncontrolled rvr. upon arriving in patient room he was resting. he stated his chest hurt /10. He oxygen was desatting to the 80s. I put on oxygen 2L and patient was at 93%. Patient heart rate went down to the 130s. Patient stated he was not feeling pain anymore. MD Hung called per Nara OROZCO and patient received order for amio per protocol with bolus.
[2021-01-03] MEDS ORDERED: amiodarone 150mg/dext, iso-os 100 ML IV ONE (19:35)
--- NOTE | 2021-01-03 19:55 | NUR ---
Patient a/ox3. His blood pressure systolic was 117. patient received an ekg
[2021-01-03] MEDS: amiodarone/D5 360MG/200ML BAG 200 ML IV SCH (20:01)
--- NOTE | 2021-01-03 20:04 | NUR ---
Rapid response called at 1930 for rapid afib. Upon arrival, patient awake, alert, in rapid afib, rate 140-160s, EKG in progress, BP 132/75, pt denies SOB; staff nurse already spoke with Dr. Long and received orders for amio bolus and gtt per protocol.
[2021-01-03] MEDS: atorvastatin 10mg tablet PO SCH (20:15)
[2021-01-03] MEDS: metoprolol tartrate 25mg tablet PO SCH (20:15)
[2021-01-03 22:00] VITALS: BP 102/63
--- NOTE | 2021-01-03 23:32 | NUR ---
patient is sitting on side of bed and he is noncompliant to laying in bed, he is falling asleep. patient was educated and reminded. patient states that if he falls then it is on him. he states he wants to sit on the edge of the bed
[2021-01-04] VITALS (7 sets, daily range): BP systolic 89–131; BP diastolic 54–68
[2021-01-04] MEDS: amiodarone/D5 360MG/200ML BAG 200 ML IV SCH ×5 (00:49→19:55)
--- NOTE | 2021-01-04 05:53 | NUR ---
patient got up from bed and moved himself to the chair. rn discussed previously with patient to call rn when getting up to prevent falls, and sudden increase in heart rate with abrupt movement. patient looked at rn and giggled stating he wont fall and his heart is fine. patient is noncompliant. heart rate was in the 150s after he moved from bed to chair on his own. reinforcement and educated is needed. rn will continue to monitor and educate patient.
--- NOTE | 2021-01-04 06:20 | NUR ---
Problems reprioritized. Patient report given, questions answered & plan of care reviewed with Korey OROZCO.
[2021-01-04 07:28] LABS: BASOPHILS % (AUTO) 0.2 % (0-1); EOSINOPHILS # (AUTO) 0.1 X10'3 (0-0.9); EOSINOPHILS % (AUTO) 1.9 % (0-6); HEMATOCRIT 29.9 % (42.0-52.0); HEMOGLOBIN 9.9 g/dl (14.0-17.9); LYMPHOCYTES # (AUTO) 1.2 X10'3 (1.1-4.8); LYMPHOCYTES % (AUTO) 18.4 % (21-51); MEAN CORPUSCULAR HEMOGLOBIN 30.9 PG (27.0-31.0); MEAN CORPUSCULAR HGB CONC 33.3 g/dL (33.0-36.5); MEAN PLATELET VOLUME 9.3 FL (7.4-10.4); MONOCYTES # (AUTO) 0.9 X10'3 (0-0.9); MONOCYTES % (AUTO) 13.3 % (2-12); NEUTROPHILS # (AUTO) 4.3 X10'3 (1.8-7.7); NEUTROPHILS % (AUTO) 66.2 % (42-75); PLATELET COUNT 128 X10'3 (140-440); RED BLOOD COUNT 3.21 X10'6 (4.70-6.10); RED CELL DISTRIBUTION WIDTH 15.7 % (11.5-14.5); WHITE BLOOD COUNT 6.5 X10'3 (4.5-11.0)
[2021-01-04 07:53] LABS: ALBUMIN 2.8 G/DL (3.4-5.0); ANION GAP 7 (8-16); BLOOD UREA NITROGEN 28 MG/DL (7-18); BUN/CREATININE RATIO 26.9 (5.4-32.0); CALCIUM 8.4 MG/DL (8.5-10.1); CHLORIDE 104 MMOL/L (99-107); CREATININE 1.04 MG/DL (0.60-1.10); GLUCOSE 112 MG/DL (70-104); POTASSIUM 4.1 MMOL/L (3.5-5.1); SODIUM 140 MMOL/L (135-145); TOTAL CARBON DIOXIDE 29.5 MMOL/L (24-32); eGFR 73 ML/MIN
[2021-01-04] MEDS: metoprolol tartrate 25mg tablet PO SCH ×3 (08:00→19:55)
[2021-01-04] MEDS: pantoprazole 40mg Tablet.DR PO SCH (08:29)
[2021-01-04] MEDS: heparin, porcine 5000 units/ml vial SQ SCH ×2 (08:29→19:54)
[2021-01-04] MEDS: furosemide 40mg tablet PO SCH (08:29)
[2021-01-04] MEDS: potassium Cl 20 mEq SR tablet PO SCH ×2 (08:29→19:52)
[2021-01-04] MEDS: magnesium Cl slow-release 64mg tablet PO SCH ×2 (08:29→19:52)
[2021-01-04] MEDS: aspirin 81mg tablet.DR PO SCH (08:29)
[2021-01-04] MEDS: sennosides/docusate sodium tablet PO SCH ×2 (08:29→19:55)
--- NOTE | 2021-01-04 09:11 | NUR ---
NOTIFIED MANAGER ASSET THAT PATIENT IS PLACED ON TELE #1
[2021-01-04] MEDS ORDERED: amiodarone 150mg/dext, iso-os 100 ML IV ONE (10:10)
[2021-01-04] MEDS ORDERED: magnesium 2GM in 50ml NS 50 ML IV ONE (10:25)
[2021-01-04] MEDS ORDERED: potassium Cl 20 mEq SR tablet PO STA (10:25)
[2021-01-04] MEDS: ALPRAZolam 0.25mg tablet PO PRN ×2 (10:54→20:13)
[2021-01-04] MEDS ORDERED: digoxin 250mcg/ml 2ml ampule IV ONE (11:40)
[2021-01-04 11:54] LABS: MAGNESIUM 2.2 MG/DL (1.5-2.4)
[2021-01-04] MEDS: JUVEN Smoothie Arginine/Glut./Ca2+Bmb (Juven 19.3pkt) 240ml cup PO SCH ×2 (12:40→17:30)
[2021-01-04] MEDS ORDERED: ondansetron 4mg rapidly disintigrating tab PO PRN (14:20)
[2021-01-04] MEDS: digoxin 250mcg/ml 2ml ampule IV SCH ×2 (16:26→19:52)
[2021-01-04] MEDS: Melatonin 3mg tablet PO SCH (20:13)
[2021-01-04] MEDS: lisinopril 5mg tablet PO SCH (20:13)
[2021-01-04] MEDS: atorvastatin 10mg tablet PO SCH (20:14)
[2021-01-05] VITALS (8 sets, daily range): BP systolic 105–148; BP diastolic 60–81
--- NOTE | 2021-01-05 00:39 | NUR ---
obtained ekg 12 lead, patient converted to nsr from afib @ 8709 01/04, patient is currently on amiodarone gtt at this time . devulcanizer charger lory made aware will continue to monitor.
[2021-01-05] MEDS: albuterol 2.5 MG/3 ML nebule NEB PRN (00:53)
[2021-01-05] MEDS: amiodarone/D5 360MG/200ML BAG 200 ML IV SCH (03:04)
--- NOTE | 2021-01-05 05:37 | NUR ---
error was made on iv spread sheet, amiodarone was never restarted at 33mls/hr. new bag was hanged at ordered amount of 16.7mls/hr.
[2021-01-05 07:15] LABS: BASOPHILS % (AUTO) 0.3 % (0-1); EOSINOPHILS # (AUTO) 0.1 X10'3 (0-0.9); EOSINOPHILS % (AUTO) 1.3 % (0-6); HEMATOCRIT 28.3 % (42.0-52.0); HEMOGLOBIN 9.4 g/dl (14.0-17.9); LYMPHOCYTES # (AUTO) 0.9 X10'3 (1.1-4.8); LYMPHOCYTES % (AUTO) 13.8 % (21-51); MEAN CORPUSCULAR HEMOGLOBIN 30.8 PG (27.0-31.0); MEAN CORPUSCULAR HGB CONC 33.2 g/dL (33.0-36.5); MEAN CORPUSCULAR VOLUME 92.7 FL (78-98); MEAN PLATELET VOLUME 9.3 FL (7.4-10.4); MONOCYTES # (AUTO) 0.7 X10'3 (0-0.9); MONOCYTES % (AUTO) 11.7 % (2-12); NEUTROPHILS # (AUTO) 4.6 X10'3 (1.8-7.7); NEUTROPHILS % (AUTO) 72.9 % (42-75); PLATELET COUNT 139 X10'3 (140-440); RED BLOOD COUNT 3.05 X10'6 (4.70-6.10); RED CELL DISTRIBUTION WIDTH 15.8 % (11.5-14.5); WHITE BLOOD COUNT 6.3 X10'3 (4.5-11.0)
[2021-01-05 07:17] LABS: ALBUMIN 2.8 G/DL (3.4-5.0); ANION GAP 8 (8-16); BLOOD UREA NITROGEN 25 MG/DL (7-18); BUN/CREATININE RATIO 25.3 (5.4-32.0); CALCIUM 8.6 MG/DL (8.5-10.1); CHLORIDE 105 MMOL/L (99-107); CREATININE 0.99 MG/DL (0.60-1.10); GLUCOSE 121 MG/DL (70-104); MAGNESIUM 2.1 MG/DL (1.5-2.4); POTASSIUM 4.7 MMOL/L (3.5-5.1); SODIUM 140 MMOL/L (135-145); TOTAL CARBON DIOXIDE 26.6 MMOL/L (24-32); eGFR 77 ML/MIN
[2021-01-05] MEDS: aspirin 81mg tablet.DR PO SCH (07:38)
[2021-01-05] MEDS: metoprolol tartrate 25mg tablet PO SCH ×2 (07:38→19:57)
[2021-01-05] MEDS: furosemide 40mg tablet PO SCH (07:38)
[2021-01-05] MEDS: pantoprazole 40mg Tablet.DR PO SCH (07:38)
[2021-01-05] MEDS: sennosides/docusate sodium tablet PO SCH ×2 (07:39→19:57)
[2021-01-05] MEDS: potassium Cl 20 mEq SR tablet PO SCH ×2 (07:39→19:51)
[2021-01-05] MEDS: magnesium Cl slow-release 64mg tablet PO SCH ×2 (07:39→19:58)
[2021-01-05] MEDS: heparin, porcine 5000 units/ml vial SQ SCH ×2 (07:40→19:59)
[2021-01-05] MEDS ORDERED: benzocaine/menthol oral lozeng 1 EACH BOX MM PRN (08:40)
[2021-01-05] MEDS ORDERED: benzonatate 100mg capsule PO PRN (08:40)
[2021-01-05] MEDS: digoxin 125mcg (0.125mg) tablet PO SCH (09:04)
[2021-01-05] MEDS: amiodarone 200mg tablet PO SCH ×2 (09:05→19:56)
[2021-01-05] MEDS: JUVEN Smoothie Arginine/Glut./Ca2+Bmb (Juven 19.3pkt) 240ml cup PO SCH ×2 (12:30→17:30)
--- NOTE | 2021-01-05 14:05 | NUR ---
F/u 01/05: Pt PO 75-100% avg NCS diet and refusing Eugene ONS even though providing pt preferred flavor preferences. JOSE d/w RN regarding cancelling ONS since pt refusing if MD agreeable. LBM 01/04 refusing senna today. No nutrition concerns at this time. Will continue to monitor. Recommendations: 1) Advance to heart healthy diet as medically indicated 2) Routine bowel care 3) Scaled weights per rx Addendum: 01/05/21 at [address] Amended: Links added.
[2021-01-05] MEDS: Melatonin 3mg tablet PO SCH (20:03)
[2021-01-05] MEDS: lisinopril 5mg tablet PO SCH (20:03)
[2021-01-05] MEDS: atorvastatin 10mg tablet PO SCH (20:04)
[2021-01-06 02:00] VITALS: BP 113/65
--- NOTE | 2021-01-06 03:00 | NUR ---
PT Ate 100% of turkey sandwich.
--- NOTE | 2021-01-06 03:30 | NUR ---
PT AMBULATED 600 FT LAST NIGHT, ( 2 WALKS)
[2021-01-06 06:00] VITALS: BP 103/68
--- NOTE | 2021-01-06 06:05 | NUR ---
Patient in room MED 307. I have received report from ERNESTO Oakley and had the opportunity to ask questions and assume patient care.
[2021-01-06 06:15] LABS: ALBUMIN 2.5 G/DL (3.4-5.0); ANION GAP 9 (8-16); CHLORIDE 105 MMOL/L (99-107); CREATININE 1.07 MG/DL (0.60-1.10); GLUCOSE 152 MG/DL (70-104); POTASSIUM 4.8 MMOL/L (3.5-5.1); SODIUM 139 MMOL/L (135-145); TOTAL CARBON DIOXIDE 25.4 MMOL/L (24-32); eGFR 70 ML/MIN
[2021-01-06 06:21] LABS: BLOOD UREA NITROGEN 20 MG/DL (7-18); BUN/CREATININE RATIO 18.7 (5.4-32.0)
--- NOTE | 2021-01-06 06:36 | NUR ---
Problems reprioritized. Patient report given, questions answered & plan of care reviewed with CLIVE. Addendum: 01/06/21 at 0637 by Humberto Polo RN Amended: Links added.
[2021-01-06] MEDS: sennosides/docusate sodium tablet PO SCH (08:00)
[2021-01-06] MEDS: potassium Cl 20 mEq SR tablet PO SCH (08:00)
[2021-01-06] MEDS: magnesium Cl slow-release 64mg tablet PO SCH (08:00)
[2021-01-06] MEDS ORDERED: AMIO200T67 PO (09:29)
[2021-01-06] MEDS ORDERED: LAN0.125T PO (09:29)
[2021-01-06] MEDS: heparin, porcine 5000 units/ml vial SQ SCH (09:34)
[2021-01-06] MEDS ORDERED: ALPR-149 PO (09:35)
[2021-01-06] MEDS: aspirin 81mg tablet.DR PO SCH (09:35)
[2021-01-06] MEDS: pantoprazole 40mg Tablet.DR PO SCH (09:35)
[2021-01-06] MEDS: digoxin 125mcg (0.125mg) tablet PO SCH (09:37)
[2021-01-06] MEDS: amiodarone 200mg tablet PO SCH (09:37)
[2021-01-06] MEDS: furosemide 40mg tablet PO SCH (09:38)
[2021-01-06 10:00] VITALS: BP 105/66
--- NOTE | 2021-01-06 12:00 | NUR ---
Pt stable for D/C per MD orders. All d/c ppwk reviewed with patient. PIV's removed - pt tolerated well. D/C wound pics taken and in chart. New RX sent to [facility] in [place] - pt verbalized understanding. All personal belongings sent with patient. Patient rolled out in W/C to private vehicle driven by sister. Pt had the opportunity to ask questions and get all answers.
== END 2021-01-06 11:50 | disposition home or self-care (01) | DRG 235 ==
LOC: ER 09:17 → ED HOLD 13:55 → EDBEDREQ 14:44 → PCU 3S 16:10 → ICU 2S 12-30 12:09 → MED 3N 01-02 17:05
PROVIDERS: ADMIT Family Medicine; ATTEND Family Medicine
PROC: 021109W Bypass Coronary Artery, Two Arteries from Aorta with Autologous Venous Tissue, Open Approach (ICD-10-PCS; 2020-12-30)
PROC: 06BQ4ZZ Excision of Left Saphenous Vein, Percutaneous Endoscopic Approach (ICD-10-PCS; 2020-12-30)
PROC: 5A1221Z Performance of Cardiac Output, Continuous (ICD-10-PCS; 2020-12-30)
PROC: B24BZZ4 Ultrasonography of Heart with Aorta, Transesophageal (ICD-10-PCS; 2020-12-30)
PROC: 02100Z9 Bypass Coronary Artery, One Artery from Left Internal Mammary, Open Approach (ICD-10-PCS; principal; 2020-12-30 07:01)
DX: I25.110 Atherosclerotic heart disease of native coronary artery with unstable angina pectoris (principal); I21.4 Non-ST elevation (NSTEMI) myocardial infarction; I47.2 Ventricular tachycardia; I50.20 Unspecified systolic (congestive) heart failure; I97.190 Other postprocedural cardiac functional disturbances following cardiac surgery; I42.0 Dilated cardiomyopathy; E78.5 Hyperlipidemia, unspecified; I11.0 Hypertensive heart disease with heart failure; R44.1 Visual hallucinations; F41.9 Anxiety disorder, unspecified; E66.01 Morbid (severe) obesity due to excess calories; I25.2 Old myocardial infarction; Z83.3 Family history of diabetes mellitus; Z95.5 Presence of coronary angioplasty implant and graft; Z88.0 Allergy status to penicillin; Z88.8 Allergy status to other drugs, medicaments and biological substances; Z68.36 Body mass index [BMI] 36.0-36.9, adult; Z79.899 Other long term (current) drug therapy; Z79.82 Long term (current) use of aspirin; T40.2X5A Adverse effect of other opioids, initial encounter; Y92.230 Patient room in hospital as the place of occurrence of the external cause; I48.0 Paroxysmal atrial fibrillation; Y83.2 Surgical operation with anastomosis, bypass or graft as the cause of abnormal reaction of the patient, or of later complication, without mention of misadventure at the time of the procedure
CPT/HCPCS: 0232T; 93306; 93312; 93325; 99285; Z7506; Z7508; 36415; 36600; 71045; 71046; 76937; 80048; 80053; 80162; 82330; 82435; 82803; 82947; 82948; 83036; 83735; 83880; 84100; 84132; 84295; 84484; 85018; 85025; 85347; 85384; 85576; 85610; 85730; 86885; 86900; 86901; 86920; 87081; 93005; 93308; 93880; 93970; 94002; 94010; 94640; 94668; 94760; 97110; 97116; 97161; 97530; A4618; A6258; A6402; A6449; A7000; C1713; C1751; C9113; G0378; J0690; J1160; J1265; J1644; J1815; J1940; J2060; J2150; J2250; J2270; J2405; J2440; J2704; J2720; J2930; J3370; J3475; J3480; J3490; J7030; J7040; J7050; J7120; P9045; P9047

== ENCOUNTER 2023-02-07 08:05 | Inpatient (IN) | payer MEDICAID ==
[~2023-02-07] VITALS: Ht 170.2 cm; Wt 112.4 kg
[~2023-02-07 08:05] MED LIST changes: +ALBU6.7H14 INH; +APIX5TAB3 PO; +ASPI-1475 PO; +ATOR-2 PO; +BUDE10.22 INH; +CARV-50 PO; +CLOP-32 PO; +DIGO250T PO; +FURO40TA4 PO; +LISI10TA27 PO; +NITR0.4T51 SL; +PRED20TA PO; +SPIR25TA5 PO; -heparin 10,000 units/1 ML INJ ONE; -papaverine 30 mg/ml 2ml inj. ONE
[2023-02-07 08:45] LABS: ALANINE AMINOTRANSFERASE 38 U/L (12-78); ALBUMIN 3.2 G/DL (3.4-5.0); ALBUMIN/GLOBULIN RATIO 0.8 (1.1-1.5); ALKALINE PHOSPHATASE 107 IU/L (46-116); ANION GAP 8 (8-16); ASPARTATE AMINO TRANSFERASE 25 U/L (10-37); BASOPHILS % (AUTO) 0.4 % (0-1); BILIRUBIN,TOTAL 1.5 MG/DL (0.1-1.0); BLOOD UREA NITROGEN 19 MG/DL (7-18); BUN/CREATININE RATIO 15.8 (10.0-20.0); CALCIUM 8.6 MG/DL (8.5-10.1); CHLORIDE 103 MMOL/L (99-107); EOSINOPHILS # (AUTO) 0.1 X10'3 (0-0.9); EOSINOPHILS % (AUTO) 1.4 % (0-6); GLUCOSE 152 MG/DL (70-104); HEMATOCRIT 39.2 % (42.0-52.0); HEMOGLOBIN 12.7 g/dl (14.0-17.9); LYMPHOCYTES # (AUTO) 1.1 X10'3 (1.1-4.8); LYMPHOCYTES % (AUTO) 16.9 % (21-51); MEAN CORPUSCULAR HEMOGLOBIN 29.4 PG (27.0-31.0); MEAN CORPUSCULAR HGB CONC 32.4 g/dL (33.0-36.5); MEAN CORPUSCULAR VOLUME 90.8 FL (78-98); MEAN PLATELET VOLUME 10.1 FL (7.4-10.4); MONOCYTES # (AUTO) 0.7 X10'3 (0-0.9); MONOCYTES % (AUTO) 10.9 % (2-12); NEUTROPHILS # (AUTO) 4.5 X10'3 (1.8-7.7); NEUTROPHILS % (AUTO) 70.4 % (42-75); PLATELET COUNT 100 X10'3 (140-440); POTASSIUM 4.4 MMOL/L (3.5-5.1); RED BLOOD COUNT 4.32 X10'6 (4.70-6.10); RED CELL DISTRIBUTION WIDTH 16.2 % (11.5-14.5); SODIUM 137 MMOL/L (135-145); TOTAL CARBON DIOXIDE 25.9 MMOL/L (24-32); WHITE BLOOD COUNT 6.4 X10'3 (4.5-11.0); eGFR 61 ML/MIN
[2023-02-07 08:54] LABS: MAGNESIUM 1.9 MG/DL (1.5-2.4)
--- NOTE | 2023-02-07 09:00 | NUR ---
PT ARRIVED FROM ED AT APPROXIMATELY 0900. RECEIVED REPORT FROM SUMMER RN AND ASSUMED CARE OF PATIENT. A/OX4 VSS PT DOES HAVE SOB AT REST. PT WITH CONCERNS OF GOUT, DOCTOR TO CHECK A URIC ACID LEVEL
[2023-02-07] MEDS ORDERED: aspirin 81mg tab.chew PO ONE (09:05)
[2023-02-07] MEDS ORDERED: clopidogrel 300mg tablet PO ONE (09:05)
[2023-02-07] MEDS ORDERED: heparin 10,000 units/1 ML INJ IV ONE (09:05)
[2023-02-07] MEDS ORDERED: potassium Cl 40MEQ/1/2NS 520ml 520 ML IV PRN (09:20)
[2023-02-07] MEDS ORDERED: furosemide 40mg/4ml inj IV SCH (09:20)
[2023-02-07] MEDS ORDERED: potassium Cl 20 mEq SR tablet PO PRN ×2 (09:20)
[2023-02-07] MEDS ORDERED: mag hydrox/Alum hydrox/simeth 30ml oral suspension PO PRN (09:20)
[2023-02-07] MEDS ORDERED: furosemide 10 MG/1 ML 10ml inj IV ONE (09:20)
[2023-02-07] MEDS ORDERED: magnesium Cl slow-release 64mg tablet PO PRN (09:20)
[2023-02-07] MEDS ORDERED: acetaminophen 325mg tablet PO PRN (09:20)
[2023-02-07] MEDS ORDERED: ondansetron/PF 4mg/2ml inj IV PRN (09:20)
[2023-02-07] MEDS ORDERED: magnesium 2GM in 50ml NS 50 ML IV PRN (09:20)
[2023-02-07] MEDS ORDERED: morphine 2 MG/ML inj. syringe IV PRN ×3 (09:20→12:45)
[2023-02-07] MEDS ORDERED: magnesium 4gm in 100ml NS 100 ML IV PRN (09:20)
[2023-02-07] MEDS ORDERED: magnesium hydroxide 30ml (MOM) UD suspension PO PRN (09:20)
--- NOTE | 2023-02-07 09:21 | NUR ---
RN CALLED LAB AND REQ PTT BE COLLECTED ELBA.
--- NOTE | 2023-02-07 09:32 | NUR ---
PER DR RODRIGUEZ RN SHOULD ADMIN 60 MG OF LASIX.
[2023-02-07 09:37] LABS: APTT 30 SECONDS (22-32)
[2023-02-07] MEDS: heparin 25,000 UNIT/250ml bag 250 ML IV PRN (09:43)
[2023-02-07 09:56] LABS: HEMOGLOBIN A1C 8.7 % (4.5-6.2)
[2023-02-07] MEDS ORDERED: ALBU17AE26 IH (11:33)
[2023-02-07] MEDS ORDERED: APIX5TAB3 PO (11:34)
[2023-02-07] MEDS ORDERED: BUDE10.27 IH (11:34)
--- NOTE | 2023-02-07 11:39 | NUR ---
PT HAS CONCERNS THAT HIS GOUT HAS HAD A FLARE UP IN HIS LEFT KNEE. PT JUST RECOVERED FROM GOUT IN HIS RIGHT KNEE, SENT A MESSAGE TO MD VIA PAGING SYSTEM
[2023-02-07 12:23] VITALS: BP 130/83
--- NOTE | 2023-02-07 12:40 | NUR ---
CRITICAL LEVEL RESULT TEXTED TO ON DUTY PAGER ID: [phone] MESSAGE: ROOM 3012A - CRITICAL LEVEL TROPONIN #2= [id number] #1 TROP WAS POCT IN ED AT 1000, PLEASE ADVISE
[2023-02-07] MEDS ORDERED: aspirin 81mg, enteric-coated 1 TAB TABLET.DR PO ONE (12:45)
[2023-02-07] MEDS ORDERED: nitroGLYCERIN 0.4mg SUBLingual tab SL PRN (12:45)
--- NOTE | 2023-02-07 12:59 | NUR ---
PAGER ID: [phone] MESSAGE: TRINI ON TELE@[email or web address], GARRY, I PLACED TROP ORDER FOR 3012A AT 1430 WHICH IS 6 HOURS PAST FIRST TROP DRAWN. THIS WILL BE THE THIRD TROP. LET ME KNOW IF YOU WANT A FOURTH.
[2023-02-07] MEDS ORDERED: dextrose 50%-water 50ml dispensing syringe IV PRN ×2 (13:05)
[2023-02-07] MEDS ORDERED: glucagon, human recombinant 1mg kit SUBCUT PRN (13:05)
[2023-02-07] MEDS ORDERED: DEXTROSE 15 GM of carb/4 tabs (each vial/BOTTLE has 4 tablets) PO PRN ×2 (13:05)
[2023-02-07] MEDS ORDERED: MESSAGE TO PHARMACY PO ONE (13:05)
[2023-02-07] MEDS ORDERED: atorvastatin 20mg tablet PO ONE (13:26)
--- NOTE | 2023-02-07 15:31 | NUR ---
AGER ID: [phone] MESSAGE: ROOM 3012A - TYRONE CASTAÑEDA, PATIENT HAD HIS FIRST [employer] WORK[employer] APPT TOMORROW, IN [place]. I WILL RESCHEDULE THE APPT TOMORROW WHEN I CALL AND LET YOU KNOW WHO THE MD IS - RL RN - NO NEED TO REPLY
[2023-02-07] MEDS ORDERED: TRAZ-256 PO (15:47)
[2023-02-07] MEDS ORDERED: ISOS30TA84 PO (15:47)
[2023-02-07] MEDS: heparin 10,000 units/1 ML INJ IV PRN ×2 (15:57→23:36)
[2023-02-07] MEDS: furosemide 40mg/4ml inj IV SCH ×2 (16:03→20:42)
[2023-02-07 16:11] VITALS: BP 142/93
--- NOTE | 2023-02-07 16:16 | NUR ---
URIC ACID RESULTS ARE BACK AND MD NOTIFIED, SEE BELOW: AGER ID: [id number] MESSAGE: TYRESE 3012A - TYRONE - URIC ACID RESULTS ARE 11.4 HIGH! PLEASE ADVISE THANK YOU :)
[2023-02-07] MEDS ORDERED: AMOX-CLAV (17:43)
[2023-02-07] MEDS ORDERED: AZIT-83 PO (17:43)
[2023-02-07 18:00] VITALS: BP 125/85
--- NOTE | 2023-02-07 18:00 | NUR ---
RESENT A PAGE WITH #3 TROPONIN RESULTS AND URIC ACID RESULTS: PAGER ID: [phone] MESSAGE: ROOM 3012A - TYRONE - CRITICAL TROPONIN #3 BACK AT 934 ALSO DONT FORGET ABOUT ORDERING SOMETHING FOR HIS GOUT URIC ACID RESULT IS HIGH AT 11.4 - TY :) RL OROZCO
--- NOTE | 2023-02-07 18:15 | NUR ---
Patient in room PCU 3012. I have received report from ERNESTO Landis and had the opportunity to ask questions and assume patient care. Patient sitting on side of bed eating dinner, reports no chest pain at this time. I will continue to monitor.
[2023-02-07] MEDS: K and/or MAG REPLACEMENT MC SCH (20:00)
[2023-02-07] MEDS: docusate sod 100mg capsule PO SCH (20:00)
[2023-02-07] MEDS: colchicine 0.6mg tablet PO SCH (20:43)
[2023-02-07] MEDS ORDERED: atorvastatin 20mg tablet PO SCH (21:00)
[2023-02-07] MEDS ORDERED: insulin Lispro (HumaLOG) vial - multi-dose SQ SCH (21:05)
[2023-02-07 22:00] VITALS: BP 126/89
[2023-02-07] MEDS: insulin glargine (Lantus) pen - multi-dose SQ SCH (22:15)
--- NOTE | 2023-02-07 23:53 | NUR ---
Patient reports he cannot sleep and has not slept in 2days, per Dr. Garcia give restoril 15mg HS
[2023-02-07] MEDS ORDERED: temazepam 15mg capsule PO PRN (23:55)
--- NOTE | 2023-02-08 01:56 | NUR ---
I agree with all of DREDGE CAPTAIN Arnulfo Osuna's physical assessments on this Patient. Isaac Hernandez RN
[2023-02-08 02:00] VITALS: BP 109/77
[2023-02-08 04:40] LABS: BASOPHILS % (AUTO) 0.7 % (0-1); EOSINOPHILS # (AUTO) 0.2 X10'3 (0-0.9); EOSINOPHILS % (AUTO) 2.8 % (0-6); HEMATOCRIT 38.9 % (42.0-52.0); HEMOGLOBIN 12.7 g/dl (14.0-17.9); LYMPHOCYTES # (AUTO) 1.4 X10'3 (1.1-4.8); LYMPHOCYTES % (AUTO) 21.3 % (21-51); MEAN CORPUSCULAR HEMOGLOBIN 29.5 PG (27.0-31.0); MEAN CORPUSCULAR HGB CONC 32.6 g/dL (33.0-36.5); MEAN CORPUSCULAR VOLUME 90.6 FL (78-98); MEAN PLATELET VOLUME 9.9 FL (7.4-10.4); MONOCYTES # (AUTO) 0.7 X10'3 (0-0.9); MONOCYTES % (AUTO) 11.5 % (2-12); NEUTROPHILS # (AUTO) 4.1 X10'3 (1.8-7.7); NEUTROPHILS % (AUTO) 63.7 % (42-75); PLATELET COUNT 115 X10'3 (140-440); RED BLOOD COUNT 4.29 X10'6 (4.70-6.10); RED CELL DISTRIBUTION WIDTH 16.3 % (11.5-14.5); WHITE BLOOD COUNT 6.5 X10'3 (4.5-11.0)
[2023-02-08] MEDS: heparin 25,000 UNIT/250ml bag 250 ML IV PRN ×2 (05:12→21:10)
--- NOTE | 2023-02-08 06:00 | NUR ---
Received report from Rajani Hi RN, assumed care of patient with [place] OROZCO - [place]. all questions answered. pt awake in bed in no distress
[2023-02-08 06:03] LABS: ALANINE AMINOTRANSFERASE 36 U/L (12-78); ALBUMIN 3.1 G/DL (3.4-5.0); ALBUMIN/GLOBULIN RATIO 0.8 (1.1-1.5); ALKALINE PHOSPHATASE 111 IU/L (46-116); ANION GAP 9 (8-16); ASPARTATE AMINO TRANSFERASE 27 U/L (10-37); BLOOD UREA NITROGEN 22 MG/DL (7-18); BUN/CREATININE RATIO 17.5 (10.0-20.0); CALCIUM 8.5 MG/DL (8.5-10.1); CHLORIDE 102 MMOL/L (99-107); CHOLESTEROL 85 MG/DL (0-200); CREATININE 1.26 MG/DL (0.60-1.10); GLUCOSE 139 MG/DL (70-104); HDL CHOLESTEROL 21 MG/DL (35-60); LDL CHOLESTEROL 56 MG/DL (50-100); MAGNESIUM 1.9 MG/DL (1.5-2.4); POTASSIUM 3.6 MMOL/L (3.5-5.1); SODIUM 138 MMOL/L (135-145); TOTAL PROTEIN 6.8 G/DL (6.4-8.2); TRIGLYCERIDES 96 MG/DL (20-135); eGFR 58 ML/MIN
--- NOTE | 2023-02-08 06:16 | NUR ---
Problems reprioritized. Patient report given, questions answered & plan of care reviewed with ERNESTO Landis.
--- NOTE | 2023-02-08 07:47 | NUR ---
Patient in room PCU 3012. I have received report from Rajani and had the opportunity to ask questions and assume patient care.
[2023-02-08 07:49] VITALS: BP 123/79
[2023-02-08] MEDS: docusate sod 100mg capsule PO SCH ×2 (08:00→20:00)
[2023-02-08] MEDS: K and/or MAG REPLACEMENT MC SCH ×2 (08:00→20:00)
[2023-02-08] MEDS: insulin Lispro (HumaLOG) vial - multi-dose SQ SCH ×3 (08:17→19:18)
[2023-02-08] MEDS: colchicine 0.6mg tablet PO SCH ×2 (08:26→20:04)
[2023-02-08] MEDS: furosemide 40mg/4ml inj IV SCH ×2 (08:27→20:05)
[2023-02-08] MEDS: aspirin 81mg, enteric-coated 1 TAB TABLET.DR PO SCH (08:27)
--- NOTE | 2023-02-08 08:37 | NUR ---
Tele Monitor reported 7 beat run of V-tac. Hospitalist paged. Pt reports no symptoms. Magnesium Extended Release 128 mg po given. PAGER ID: [phone] MESSAGE: [id number] Wili Mcclure. 7 beat run of V-Tach. Have given 128mg dose of Magnesium Chloride (in Mg protocol) Izaiah Burns RN ext [phone]
[2023-02-08 11:46] VITALS: BP 110/72
--- NOTE | 2023-02-08 12:28 | NUR ---
Pt had another run of VTach (15 beats) notified via text. AGER ID: [phone] MESSAGE: tonya ledesma, [id number]. Pt had another run of VTach. 15 beats. Cardiology on floor. Izaiah Burns. U ext [phone]
--- NOTE | 2023-02-08 13:54 | NUR ---
DM Consult "new DX T2DM": Pt admit DX TX, CHF, HTN, acute vs chronic renal insufficiency, and anemia only PMH HTN w/ A1C 8.7% per EMR. Pt prior A1C 6.9% 10/2022 visit though no DM DX hx in EMR. RD d/w RN who reports pt has been told by of new onset DM, RN provided education for Glu checks/glucometer, and test strips/glucometer to be sent for fruit picker after discharge. Pt seen by RD at bedside for written/verbal DM diet ed w/ RD contact information provided. RD provided thorough review and encouraged pt to contact dieitian's office if further nutrition questions/concerns. Pt PO 100% initial carb controlled meals meeting protein needs and ~93% kcals needs; double proteins WL added for satiety-dietary notified. LBM 02/07 pt refusing colace this admit per EMR. Will continue to follow. Rec: 1. continue carb controlled diet; diet lemon-[place] soda and bottled water TIDWM per diet order; double protein WL for satiety 2. routine bowel care 3. daily wt Addendum: 02/08/23 at [address] Amended: Links added.
[2023-02-08] MEDS: heparin 10,000 units/1 ML INJ IV PRN ×2 (14:02→21:07)
[2023-02-08] MEDS ORDERED: nitroGLYCERIN 0.4mg SUBLingual tab SL PRN (14:40)
[2023-02-08] MEDS: spironolactone 25 MG tablet PO SCH (14:40)
[2023-02-08] MEDS: digoxin 250mcg (0.25mg) tablet PO SCH (17:07)
[2023-02-08 18:00] VITALS: BP 126/81
[2023-02-08 19:31] LABS: URINE AMPHETAMINE SCREEN NEGATIVE (Neg); URINE BARBITUATE SCREEN NEGATIVE (Neg); URINE BENZODIAZEPINES SCREEN NEGATIVE (Neg); URINE CANNABINOID SCREEN NEGATIVE (Neg); URINE COCAINE SCREEN NEGATIVE (Neg); URINE METHADONE SCREEN NEGATIVE (Neg); URINE OPIATE SCREEN NEGATIVE (Neg); URINE PHENCYCLIDINE SCREEN NEGATIVE (Neg)
[2023-02-08 20:00] VITALS: BP 104/65
[2023-02-08] MEDS ORDERED: furosemide 40mg tablet PO SCH (20:00)
[2023-02-08] MEDS: carVEDilol 12.5mg tablet PO SCH (20:03)
[2023-02-08] MEDS: sacubitril/valsartan 24mg-26mg tablet PO SCH (20:03)
[2023-02-08] MEDS: HYDROcodone/acetaminophen 5mg/325mg tablet PO PRN (20:03)
[2023-02-08] MEDS: atorvastatin 20mg tablet PO SCH (20:04)
[2023-02-08] MEDS: traZODone 50mg tablet PO SCH (20:14)
[2023-02-08] MEDS: insulin glargine (Lantus) pen - multi-dose SQ SCH (22:17)
[2023-02-09 02:00] VITALS: BP 129/67
[2023-02-09 04:08] LABS: BASOPHILS # (AUTO) 0.1 X10'3 (0-0.2); BASOPHILS % (AUTO) 1.1 % (0-1); EOSINOPHILS # (AUTO) 0.2 X10'3 (0-0.9); EOSINOPHILS % (AUTO) 3.4 % (0-6); HEMATOCRIT 39.6 % (42.0-52.0); LYMPHOCYTES # (AUTO) 1.2 X10'3 (1.1-4.8); LYMPHOCYTES % (AUTO) 22.2 % (21-51); MEAN CORPUSCULAR HEMOGLOBIN 29.5 PG (27.0-31.0); MEAN CORPUSCULAR HGB CONC 32.8 g/dL (33.0-36.5); MEAN CORPUSCULAR VOLUME 90.1 FL (78-98); MEAN PLATELET VOLUME 9.9 FL (7.4-10.4); MONOCYTES # (AUTO) 0.6 X10'3 (0-0.9); MONOCYTES % (AUTO) 11.6 % (2-12); NEUTROPHILS # (AUTO) 3.3 X10'3 (1.8-7.7); NEUTROPHILS % (AUTO) 61.7 % (42-75); PLATELET COUNT 119 X10'3 (140-440); RED CELL DISTRIBUTION WIDTH 16.6 % (11.5-14.5); WHITE BLOOD COUNT 5.4 X10'3 (4.5-11.0)
[2023-02-09 04:24] LABS: ALANINE AMINOTRANSFERASE 31 U/L (12-78); ALBUMIN 2.9 G/DL (3.4-5.0); ALBUMIN/GLOBULIN RATIO 0.9 (1.1-1.5); ALKALINE PHOSPHATASE 114 IU/L (46-116); ANION GAP 8 (8-16); ASPARTATE AMINO TRANSFERASE 23 U/L (10-37); BILIRUBIN,TOTAL 1.5 MG/DL (0.1-1.0); BLOOD UREA NITROGEN 27 MG/DL (7-18); BUN/CREATININE RATIO 22.9 (10.0-20.0); CALCIUM 8.6 MG/DL (8.5-10.1); CHLORIDE 102 MMOL/L (99-107); CREATININE 1.18 MG/DL (0.60-1.10); GLUCOSE 163 MG/DL (70-104); MAGNESIUM 2.1 MG/DL (1.5-2.4); SODIUM 137 MMOL/L (135-145); TOTAL PROTEIN 6.3 G/DL (6.4-8.2); eGFR 63 ML/MIN
--- NOTE | 2023-02-09 06:43 | NUR ---
Problems reprioritized. Patient report given, questions answered & plan of care reviewed with britta RN.
[2023-02-09 06:45] VITALS: BP 119/69
--- NOTE | 2023-02-09 07:21 | NUR ---
Patient in room PCU 3012. I have received report from Nancy and had the opportunity to ask questions and assume patient care.
[2023-02-09] MEDS: docusate sod 100mg capsule PO SCH ×2 (08:00→19:57)
[2023-02-09] MEDS ORDERED: isosorbide mononitrate 30mg tab.SR.24H PO SCH (08:00)
[2023-02-09] MEDS ORDERED: aspirin 81mg, enteric-coated 1 TAB TABLET.DR PO SCH (08:00)
[2023-02-09] MEDS: K and/or MAG REPLACEMENT MC SCH ×2 (08:00→19:57)
[2023-02-09] MEDS: HYDROcodone/acetaminophen 5mg/325mg tablet PO PRN ×2 (08:26→16:14)
[2023-02-09] MEDS: furosemide 40mg/4ml inj IV SCH ×2 (09:53→20:00)
[2023-02-09] MEDS: digoxin 250mcg (0.25mg) tablet PO SCH (09:54)
[2023-02-09] MEDS: EMPAGLIFLOZIN 10 MG TABLET PO SCH (09:55)
[2023-02-09] MEDS: carVEDilol 12.5mg tablet PO SCH ×2 (09:56→20:00)
[2023-02-09] MEDS: spironolactone 25 MG tablet PO SCH (09:56)
[2023-02-09] MEDS: sacubitril/valsartan 24mg-26mg tablet PO SCH ×2 (09:56→19:50)
[2023-02-09] MEDS: aspirin 81mg, enteric-coated 1 TAB TABLET.DR PO SCH (09:56)
[2023-02-09] MEDS: allopurinol 100mg tablet PO SCH (09:57)
[2023-02-09] MEDS: clopidogrel 75mg tablet PO SCH (09:57)
[2023-02-09] MEDS: colchicine 0.6mg tablet PO SCH ×2 (09:58→19:50)
[2023-02-09] MEDS: insulin Lispro (HumaLOG) vial - multi-dose SQ SCH ×3 (10:16→19:47)
--- NOTE | 2023-02-09 11:33 | NUR ---
Spoke with Dr. Begum about pt low BP. Advised to continue meds and monitor as pt asymptomatic.
[2023-02-09 12:36] VITALS: BP 84/40
--- NOTE | 2023-02-09 12:46 | NUR ---
Pt reports mild dizziness while reclining. Pt BP continues to be low (84/40) HR in mid 50's. MD notified via text with changed condition. PAGER ID: [phone] MESSAGE: [id number] Cyndy Rasheed, Pt BP continues to be low 84/40 map 55 HR is now low to mid 50's. Pt states he is feeling mildly dizzy. Pls advise.
[2023-02-09 16:13] LABS: HBSAG SCREEN Negative (Negative); HEP B CORE AB, TOT Negative (Negative)
[2023-02-09 17:32] VITALS: BP 86/68
[2023-02-09 18:00] VITALS: BP 117/95
--- NOTE | 2023-02-09 18:31 | NUR ---
Problems reprioritized. Patient report givento Arnulfo. questions answered & plan of care reviewed with .
[2023-02-09] MEDS: traZODone 50mg tablet PO SCH (20:05)
[2023-02-09] MEDS: atorvastatin 20mg tablet PO SCH (20:06)
[2023-02-09] MEDS: insulin glargine (Lantus) pen - multi-dose SQ SCH (21:28)
[2023-02-09 22:00] VITALS: BP 109/86
[2023-02-10 02:00] VITALS: BP 118/64
[2023-02-10 06:00] VITALS: BP 130/82
--- NOTE | 2023-02-10 06:30 | NUR ---
Received report from ERNESTO Solorzano. Reprioritized patients plan of care. Pt checked on, NAD at this time. Call murillo within reach, bed locked/ lowest position.
[2023-02-10 06:47] LABS: BASOPHILS % (AUTO) 0.7 % (0-1); EOSINOPHILS # (AUTO) 0.2 X10'3 (0-0.9); EOSINOPHILS % (AUTO) 3.9 % (0-6); HEMATOCRIT 40.2 % (42.0-52.0); HEMOGLOBIN 13.3 g/dl (14.0-17.9); LYMPHOCYTES # (AUTO) 1.1 X10'3 (1.1-4.8); LYMPHOCYTES % (AUTO) 20.6 % (21-51); MEAN CORPUSCULAR HEMOGLOBIN 29.8 PG (27.0-31.0); MEAN CORPUSCULAR HGB CONC 33.1 g/dL (33.0-36.5); MEAN CORPUSCULAR VOLUME 89.8 FL (78-98); MEAN PLATELET VOLUME 9.5 FL (7.4-10.4); MONOCYTES # (AUTO) 0.6 X10'3 (0-0.9); MONOCYTES % (AUTO) 10.7 % (2-12); NEUTROPHILS # (AUTO) 3.4 X10'3 (1.8-7.7); NEUTROPHILS % (AUTO) 64.1 % (42-75); PLATELET COUNT 144 X10'3 (140-440); RED BLOOD COUNT 4.48 X10'6 (4.70-6.10); RED CELL DISTRIBUTION WIDTH 15.7 % (11.5-14.5); WHITE BLOOD COUNT 5.3 X10'3 (4.5-11.0)
--- NOTE | 2023-02-10 06:48 | NUR ---
Problems reprioritized. Patient report given, questions answered & plan of care reviewed with Ema.
[2023-02-10 07:10] LABS: ALANINE AMINOTRANSFERASE 37 U/L (12-78); ALBUMIN 2.9 G/DL (3.4-5.0); ALBUMIN/GLOBULIN RATIO 0.8 (1.1-1.5); ALKALINE PHOSPHATASE 118 IU/L (46-116); ANION GAP 8 (8-16); ASPARTATE AMINO TRANSFERASE 26 U/L (10-37); BLOOD UREA NITROGEN 31 MG/DL (7-18); BUN/CREATININE RATIO 26.3 (10.0-20.0); CALCIUM 8.9 MG/DL (8.5-10.1); CHLORIDE 104 MMOL/L (99-107); CREATININE 1.18 MG/DL (0.60-1.10); GLUCOSE 141 MG/DL (70-104); MAGNESIUM 2.2 MG/DL (1.5-2.4); POTASSIUM 4.2 MMOL/L (3.5-5.1); SODIUM 138 MMOL/L (135-145); TOTAL CARBON DIOXIDE 25.6 MMOL/L (24-32); TOTAL PROTEIN 6.4 G/DL (6.4-8.2); eGFR 63 ML/MIN
[2023-02-10] MEDS: furosemide 40mg/4ml inj IV SCH (07:32)
[2023-02-10] MEDS: docusate sod 100mg capsule PO SCH ×2 (08:00→20:00)
[2023-02-10] MEDS: K and/or MAG REPLACEMENT MC SCH ×2 (08:00→20:00)
[2023-02-10] MEDS: allopurinol 100mg tablet PO SCH (08:23)
[2023-02-10] MEDS: EMPAGLIFLOZIN 10 MG TABLET PO SCH (08:23)
[2023-02-10] MEDS: aspirin 81mg, enteric-coated 1 TAB TABLET.DR PO SCH (08:24)
[2023-02-10] MEDS: spironolactone 25 MG tablet PO SCH (08:24)
[2023-02-10] MEDS: carVEDilol 12.5mg tablet PO SCH ×2 (08:24→19:53)
[2023-02-10] MEDS: clopidogrel 75mg tablet PO SCH (08:24)
[2023-02-10] MEDS: digoxin 250mcg (0.25mg) tablet PO SCH (08:25)
[2023-02-10] MEDS: sacubitril/valsartan 24mg-26mg tablet PO SCH ×2 (08:25→19:53)
[2023-02-10] MEDS: insulin Lispro (HumaLOG) vial - multi-dose SQ SCH ×3 (09:44→19:47)
[2023-02-10] MEDS: apixaban 5mg tablet PO SCH ×2 (10:34→19:53)
[2023-02-10 11:00] VITALS: BP 90/72
--- NOTE | 2023-02-10 12:12 | NUR ---
Pt re: he feels palpitations on and off. Denies chest pain. Patients BP: 89/54 the first attempt the second one was 92/60 with a pulse of 72 and 64. Tech on the telemetry monitor relays the patients HR has been more frequently in the low 50's. Blanca Freed NP. Will CTM. NAD at this time.
[2023-02-10 18:00] VITALS: BP 100/73
--- NOTE | 2023-02-10 18:25 | NUR ---
Ema [id number] Pt: Wili Naylor 312 A: had 11 beats of vat. BP: 111/81 P:80. Denies chest pain at all. FYI Page sent to hospitalist. Addendum: 02/10/23 at 1839 by Ema NEUMANNN v-tach*
--- NOTE | 2023-02-10 18:42 | NUR ---
Reprioritized plan of care, report given to Jeanine OROZCO.
--- NOTE | 2023-02-10 19:03 | NUR ---
called and notified about pt having nonsustained 11 beats of v-tac. No new order at this time
--- NOTE | 2023-02-10 19:41 | NUR ---
Nohemi warren called to notify nurse and pt that she will be coming tomorrow being 02/11 around 10am regarding pts life vest.
[2023-02-10] MEDS: traZODone 50mg tablet PO SCH (20:13)
[2023-02-10] MEDS: atorvastatin 20mg tablet PO SCH (20:13)
[2023-02-10 22:00] VITALS: BP 96/54
[2023-02-10] MEDS: insulin glargine (Lantus) pen - multi-dose SQ SCH (22:36)
[2023-02-11 02:00] VITALS: BP 103/71
[2023-02-11 06:00] VITALS: BP 122/83
--- NOTE | 2023-02-11 06:35 | NUR ---
Problems reprioritized. Patient report given, questions answered & plan of care reviewed with RUFINO OROZCO.
--- NOTE | 2023-02-11 06:38 | NUR ---
Patient in room U 3012. I have received report from Alissa OROZCO and had the opportunity to ask questions and assume patient care. Pt sleeping, eyes closed, no distress noted. Bed in lowest position. Fall precautions observed. Addendum: 02/11/23 at 0639 by Wilner Davis LVN, LVN Amended: Links added.
[2023-02-11 06:40] LABS: BASOPHILS # (AUTO) 0.1 X10'3 (0-0.2); BASOPHILS % (AUTO) 0.9 % (0-1); EOSINOPHILS # (AUTO) 0.2 X10'3 (0-0.9); EOSINOPHILS % (AUTO) 2.6 % (0-6); HEMATOCRIT 41.8 % (42.0-52.0); HEMOGLOBIN 13.7 g/dl (14.0-17.9); LYMPHOCYTES # (AUTO) 1.5 X10'3 (1.1-4.8); LYMPHOCYTES % (AUTO) 23.7 % (21-51); MEAN CORPUSCULAR HEMOGLOBIN 29.6 PG (27.0-31.0); MEAN CORPUSCULAR HGB CONC 32.7 g/dL (33.0-36.5); MEAN CORPUSCULAR VOLUME 90.4 FL (78-98); MEAN PLATELET VOLUME 9.6 FL (7.4-10.4); MONOCYTES # (AUTO) 0.7 X10'3 (0-0.9); MONOCYTES % (AUTO) 11.5 % (2-12); NEUTROPHILS # (AUTO) 3.8 X10'3 (1.8-7.7); NEUTROPHILS % (AUTO) 61.3 % (42-75); PLATELET COUNT 151 X10'3 (140-440); RED BLOOD COUNT 4.62 X10'6 (4.70-6.10); RED CELL DISTRIBUTION WIDTH 16.4 % (11.5-14.5); WHITE BLOOD COUNT 6.1 X10'3 (4.5-11.0)
[2023-02-11 06:51] LABS: ALANINE AMINOTRANSFERASE 64 U/L (12-78); ALBUMIN 3.2 G/DL (3.4-5.0); ALBUMIN/GLOBULIN RATIO 0.9 (1.1-1.5); ALKALINE PHOSPHATASE 121 IU/L (46-116); ANION GAP 10 (8-16); ASPARTATE AMINO TRANSFERASE 53 U/L (10-37); BILIRUBIN,TOTAL 0.9 MG/DL (0.1-1.0); BLOOD UREA NITROGEN 32 MG/DL (7-18); BUN/CREATININE RATIO 25.8 (10.0-20.0); CHLORIDE 104 MMOL/L (99-107); CREATININE 1.24 MG/DL (0.60-1.10); GLUCOSE 109 MG/DL (70-104); MAGNESIUM 2.2 MG/DL (1.5-2.4); POTASSIUM 4.4 MMOL/L (3.5-5.1); SODIUM 138 MMOL/L (135-145); TOTAL CARBON DIOXIDE 24.1 MMOL/L (24-32); TOTAL PROTEIN 6.8 G/DL (6.4-8.2); eGFR 59 ML/MIN
[2023-02-11] MEDS: sacubitril/valsartan 24mg-26mg tablet PO SCH (07:32)
[2023-02-11] MEDS: spironolactone 25 MG tablet PO SCH (07:32)
[2023-02-11] MEDS: allopurinol 100mg tablet PO SCH (07:32)
[2023-02-11] MEDS: docusate sod 100mg capsule PO SCH (07:33)
[2023-02-11] MEDS: clopidogrel 75mg tablet PO SCH (07:33)
[2023-02-11] MEDS: apixaban 5mg tablet PO SCH (07:33)
[2023-02-11] MEDS: EMPAGLIFLOZIN 10 MG TABLET PO SCH (07:33)
[2023-02-11] MEDS: digoxin 250mcg (0.25mg) tablet PO SCH (07:36)
[2023-02-11] MEDS: K and/or MAG REPLACEMENT MC SCH (07:39)
[2023-02-11] MEDS ORDERED: furosemide 40mg tablet PO SCH (08:00)
[2023-02-11] MEDS: insulin Lispro (HumaLOG) vial - multi-dose SQ SCH (08:42)
[2023-02-11] MEDS: carVEDilol 12.5mg tablet PO SCH (08:46)
[2023-02-11 11:00] VITALS: BP 110/76
[2023-02-11] MEDS ORDERED: SACU1TAB PO (11:38)
[2023-02-11] MEDS ORDERED: ALLO100T25 PO (11:38)
[2023-02-11] MEDS ORDERED: EMPA10TA PO (11:38)
--- NOTE | 2023-02-11 15:37 | NUR ---
All written and verbal instruction provided to patient. All questions answered. Pt leaving with Zoll external defibrillator. Pt is unsure if he would like to continue wearing Zoll but at this time will be wearing it. Pt stated he will manage lifestyle with meds and diet. Pt encouraged to take all meds as ordered, follow up with PCP, and hypoglycemic symptoms. PIV discontinued. Pt leaving with friend in personal vehicle. Pt will be picking up meds after discharge. Addendum: 02/11/23 at 1545 by Wilner NEUMANNN Amended: Links added.
--- NOTE | 2023-02-11 16:29 | NUR ---
CONTRACT AGENT documentation: I have reviewed and agree with all interventions, assessments performed and documented by RUFINO RIOS LVN .
== END 2023-02-11 15:05 | disposition home or self-care (01) | DRG 194 ==
LOC: ER 08:05 → PCU 3S 09:27
PROVIDERS: ADMIT Internal Medicine; ATTEND Internal Medicine
DX: I13.0 Hypertensive heart and chronic kidney disease with heart failure and stage 1 through stage 4 chronic kidney disease, or unspecified chronic kidney disease (principal); I21.A1 Myocardial infarction type 2; I47.20 Ventricular tachycardia, unspecified; N17.9 Acute kidney failure, unspecified; I42.0 Dilated cardiomyopathy; D64.9 Anemia, unspecified; E11.22 Type 2 diabetes mellitus with diabetic chronic kidney disease; I48.91 Unspecified atrial fibrillation; E66.9 Obesity, unspecified; R07.89 Other chest pain; I25.10 Atherosclerotic heart disease of native coronary artery without angina pectoris; I50.22 Chronic systolic (congestive) heart failure; E78.5 Hyperlipidemia, unspecified; G89.29 Other chronic pain; F32.A Depression, unspecified; F41.9 Anxiety disorder, unspecified; J44.9 Chronic obstructive pulmonary disease, unspecified; M25.562 Pain in left knee; N18.9 Chronic kidney disease, unspecified; Z60.2 Problems related to living alone; R00.1 Bradycardia, unspecified; R25.2 Cramp and spasm; R42 Dizziness and giddiness; M10.9 Gout, unspecified; Z77.22 Contact with and (suspected) exposure to environmental tobacco smoke (acute) (chronic); Z87.01 Personal history of pneumonia (recurrent); Z88.0 Allergy status to penicillin; Z95.1 Presence of aortocoronary bypass graft; Z95.5 Presence of coronary angioplasty implant and graft; Z68.38 Body mass index [BMI] 38.0-38.9, adult; Z79.899 Other long term (current) drug therapy; Z91.018 Allergy to other foods; Z79.82 Long term (current) use of aspirin; Z79.02 Long term (current) use of antithrombotics/antiplatelets; I50.23 Acute on chronic systolic (congestive) heart failure
CPT/HCPCS: 36415; 71045; 80053; 80061; 80162; 80305; 82948; 83036; 83735; 83880; 84484; 84550; 85025; 85610; 85730; 86704; 86705; 86706; 87340; 93005; 99285; G0378; J1644; J1815; J1940; J2270

== ENCOUNTER 2023-03-30 08:57 | Inpatient (IN) | payer MEDICAID ==
[2023-03-30] VITALS (12 sets, daily range): BP systolic 119–144; BP diastolic 73–98
[~2023-03-30] VITALS: Ht 170.2 cm; Wt 113.6 kg
[~2023-03-30 08:57] MED LIST changes: -ALBU6.7H14 INH; +ALLO100T25 PO; -ASPI-1475 PO; -BUDE10.22 INH; +EMPA10TA PO; +ISOS30TA84 PO; -LISI10TA27 PO; -PRED20TA PO; +SACU1TAB PO; +TRAZ-256 PO
[2023-03-30 09:14] LABS: BASOPHILS % (AUTO) 0.6 % (0-1); EOSINOPHILS # (AUTO) 0.1 X10'3 (0-0.9); HEMATOCRIT 43.8 % (42.0-52.0); HEMOGLOBIN 14.4 g/dl (14.0-17.9); LYMPHOCYTES # (AUTO) 1.3 X10'3 (1.1-4.8); LYMPHOCYTES % (AUTO) 19.9 % (21-51); MEAN CORPUSCULAR HEMOGLOBIN 28.8 PG (27.0-31.0); MEAN CORPUSCULAR HGB CONC 32.9 g/dL (33.0-36.5); MEAN CORPUSCULAR VOLUME 87.4 FL (78-98); MEAN PLATELET VOLUME 9.9 FL (7.4-10.4); MONOCYTES # (AUTO) 0.8 X10'3 (0-0.9); NEUTROPHILS # (AUTO) 4.4 X10'3 (1.8-7.7); NEUTROPHILS % (AUTO) 65.5 % (42-75); PLATELET COUNT 110 X10'3 (140-440); RED BLOOD COUNT 5.01 X10'6 (4.70-6.10); RED CELL DISTRIBUTION WIDTH 17.2 % (11.5-14.5); WHITE BLOOD COUNT 6.7 X10'3 (4.5-11.0)
[2023-03-30 09:25] LABS: ALANINE AMINOTRANSFERASE 34 U/L (12-78); ALBUMIN 3.5 G/DL (3.4-5.0); ALKALINE PHOSPHATASE 101 IU/L (46-116); ANION GAP 7 (8-16); ASPARTATE AMINO TRANSFERASE 25 U/L (10-37); BILIRUBIN,TOTAL 1.1 MG/DL (0.1-1.0); BLOOD UREA NITROGEN 16 MG/DL (7-18); BUN/CREATININE RATIO 13.3 (10.0-20.0); CALCIUM 9.2 MG/DL (8.5-10.1); CHLORIDE 103 MMOL/L (99-107); GLUCOSE 230 MG/DL (70-104); SODIUM 137 MMOL/L (135-145); TOTAL CARBON DIOXIDE 26.8 MMOL/L (24-32); TOTAL PROTEIN 7.1 G/DL (6.4-8.2); eGFR 61 ML/MIN
[2023-03-30] MEDS ORDERED: metoprolol tartrate 25mg tablet PO ONE (09:40)
[2023-03-30] MEDS ORDERED: nitroGLYCERIN 0.4mg SUBLingual tab SL PRN ×3 (09:40→14:05)
[2023-03-30] MEDS ORDERED: aspirin 81mg tab.chew PO ONE ×2 (09:40→14:05)
[2023-03-30] MEDS ORDERED: heparin 10,000 units/1 ML INJ IV ONE (10:00)
[2023-03-30] MEDS ORDERED: heparin 25,000 UNIT/250ml bag 250 ML IV PRN (10:00)
[2023-03-30] MEDS ORDERED: amiodarone 50MG/ML inj IV ONE (10:00)
[2023-03-30] MEDS ORDERED: heparin 10,000 units/1 ML INJ IV PRN (10:05)
[2023-03-30] MEDS ORDERED: amiodarone 150mg/dext, iso-os 100 ML IV ONE (10:05)
[2023-03-30 10:19] LABS: APTT 29 SECONDS (22-32)
[2023-03-30] MEDS ORDERED: acetaminophen 325mg tablet PO PRN (10:20)
[2023-03-30] MEDS ORDERED: magnesium hydroxide 30ml (MOM) UD suspension PO PRN (10:20)
[2023-03-30] MEDS ORDERED: mag hydrox/Alum hydrox/simeth 30ml oral suspension PO PRN (10:20)
[2023-03-30] MEDS ORDERED: ondansetron/PF 4mg/2ml inj IV PRN (10:20)
[2023-03-30] MEDS ORDERED: morphine 2 MG/ML inj. syringe IV PRN ×2 (10:20)
[2023-03-30] MEDS ORDERED: SACU1TAB PO (11:35)
[2023-03-30] MEDS ORDERED: EMPA10TA PO (11:35)
[2023-03-30] MEDS ORDERED: heparin 1,000unit/ml 10ml vial 10 ML ONE (11:47)
[2023-03-30] MEDS ORDERED: LIDOcaine 1% 30ml preserv. free vial ONE (11:47)
[2023-03-30] MEDS ORDERED: iohexol 350MG/ML 100ml bottle IV ONE ×2 (11:47→12:53)
[2023-03-30] MEDS ORDERED: fentaNYL/PF 50MCG/1 ML 2ML syringe ONE (11:48)
[2023-03-30] MEDS ORDERED: midazolam 1 mg/ML 2ml injection ONE ×3 (11:48→12:40)
[2023-03-30] MEDS ORDERED: phenylephrine 10mg/ml inj. -priapism dosing ONE (12:49)
[2023-03-30] MEDS ORDERED: flumazenil 0.1 mg/ml inj. IV ONE (12:58)
[2023-03-30] MEDS ORDERED: clopidogrel 300mg tablet ONE (13:16)
[2023-03-30] MEDS: furosemide 40mg/4ml inj IV SCH ×2 (13:57→20:03)
--- NOTE | 2023-03-30 14:05 | NUR ---
Pt brought from molder labels. Report received at bedside. Pt resting in bed with post op vitals running. Femstop in place with no drainage or bleeding, releasing femstop for check at 1530. Pt can sit up at 1930.
[2023-03-30] MEDS: normal saline 1000ml 1,000 ML IV SCH ×2 (14:09→20:22)
--- NOTE | 2023-03-30 15:44 | NUR ---
Femstop removed from pt. No bleeding observed. Post op vitals still running.
[2023-03-30] MEDS: acetaminophen 325mg tablet PO PRN (17:52)
--- NOTE | 2023-03-30 19:06 | NUR ---
Problems reprioritized. Patient report given, questions answered & plan of care reviewed with Radha OROZCO.
[2023-03-30] MEDS: docusate sod 100mg capsule PO SCH (20:00)
--- NOTE | 2023-03-30 23:40 | NUR ---
Pt requesting medication to help him sleep, pt takes trazodone 100mg QHS at home. Spoke with Dr. Garcia regarding pt's request and what he takes at home. Dr. Garcia gave a telephone order for trazodone 100mg PO QHS.
[2023-03-31] MEDS ORDERED: traZODone 50mg tablet PO ONE (00:03)
[2023-03-31 02:22] VITALS: BP 138/85
[2023-03-31] MEDS: acetaminophen 325mg tablet PO PRN (04:21)
--- NOTE | 2023-03-31 06:16 | NUR ---
Nuclear called and stated pt has nitroglycerin patch in place and needed the patch removed for test. NUrse removed patch at 0616.
--- NOTE | 2023-03-31 06:51 | NUR ---
Patient in room PCU 3012. I have received report from Radha OROZCO and had the opportunity to ask questions and assume patient care.
[2023-03-31 07:00] VITALS: BP 122/96
[2023-03-31 07:10] LABS: BASOPHILS % (AUTO) 0.6 % (0-1); EOSINOPHILS # (AUTO) 0.1 X10'3 (0-0.9); EOSINOPHILS % (AUTO) 1.3 % (0-6); HEMATOCRIT 40.1 % (42.0-52.0); HEMOGLOBIN 13.1 g/dl (14.0-17.9); LYMPHOCYTES # (AUTO) 0.9 X10'3 (1.1-4.8); LYMPHOCYTES % (AUTO) 12.6 % (21-51); MEAN CORPUSCULAR HEMOGLOBIN 28.6 PG (27.0-31.0); MEAN CORPUSCULAR HGB CONC 32.7 g/dL (33.0-36.5); MEAN CORPUSCULAR VOLUME 87.6 FL (78-98); MEAN PLATELET VOLUME 10.5 FL (7.4-10.4); MONOCYTES # (AUTO) 0.7 X10'3 (0-0.9); MONOCYTES % (AUTO) 9.8 % (2-12); NEUTROPHILS # (AUTO) 5.2 X10'3 (1.8-7.7); NEUTROPHILS % (AUTO) 75.7 % (42-75); PLATELET COUNT 100 X10'3 (140-440); RED BLOOD COUNT 4.58 X10'6 (4.70-6.10); RED CELL DISTRIBUTION WIDTH 17.6 % (11.5-14.5); WHITE BLOOD COUNT 6.9 X10'3 (4.5-11.0)
[2023-03-31 07:17] LABS: ALBUMIN 3.1 G/DL (3.4-5.0); ANION GAP 12 (8-16); BLOOD UREA NITROGEN 15 MG/DL (7-18); BUN/CREATININE RATIO 13.8 (10.0-20.0); CALCIUM 8.7 MG/DL (8.5-10.1); CHLORIDE 103 MMOL/L (99-107); CREATININE 1.09 MG/DL (0.60-1.10); GLUCOSE 154 MG/DL (70-104); POTASSIUM 3.9 MMOL/L (3.5-5.1); SODIUM 138 MMOL/L (135-145); TOTAL CARBON DIOXIDE 23.1 MMOL/L (24-32); eGFR 69 ML/MIN
--- NOTE | 2023-03-31 07:21 | NUR ---
Problems reprioritized. Patient report given, questions answered & plan of care reviewed with Callie DEL RIO. Pt stable at shift change.
[2023-03-31] MEDS ORDERED: furosemide 40mg tablet PO SCH (08:00)
[2023-03-31] MEDS ORDERED: clopidogrel 75mg tablet PO SCH (08:00)
[2023-03-31] MEDS: docusate sod 100mg capsule PO SCH ×2 (08:00→20:00)
[2023-03-31] MEDS: furosemide 40mg/4ml inj IV SCH ×2 (08:05→19:40)
--- NOTE | 2023-03-31 08:30 | NUR ---
Spoke with Dr Hearn about patient being on NS @ 100 mL/hr. He gave order to saline lock patient and DC fluids
[2023-03-31] MEDS: apixaban 5mg tablet PO SCH ×2 (08:34→20:27)
[2023-03-31] MEDS: carVEDilol 12.5mg tablet PO SCH ×2 (08:34→20:26)
[2023-03-31] MEDS: EMPAGLIFLOZIN 10 MG TABLET PO SCH (08:34)
[2023-03-31] MEDS: sacubitril/valsartan 24mg-26mg tablet PO SCH ×2 (08:34→20:26)
[2023-03-31] MEDS: clopidogrel 75mg tablet PO SCH (08:34)
[2023-03-31] MEDS: isosorbide mononitrate 30mg tab.SR.24H PO SCH (08:34)
[2023-03-31] MEDS: aspirin 81mg, enteric-coated 1 TAB TABLET.DR PO SCH (08:35)
[2023-03-31] MEDS: digoxin 250mcg (0.25mg) tablet PO SCH (08:35)
[2023-03-31] MEDS: spironolactone 25 MG tablet PO SCH (08:35)
--- NOTE | 2023-03-31 08:42 | NUR ---
DM consult: Per EMR pt with T2DM, most recent A1c 8.7% 02/07 when pt was diagnosed with DM. Pt seen by RD 02/08 for written and verbal DM education with RD contact information. Will continue to follow and remain available for f/u DM education as needed. Addendum: 03/31/23 at [address] Amended: Links added.
--- NOTE | 2023-03-31 08:59 | NUR ---
PATIENT HAD A 6 BEAT RUN OF VTACH THIS AM . DR PICKETT ASKED ME TO CHECK K, MAG, AND PHOS LEVELS AND REPLACE PER PROTOCOL.
[2023-03-31 09:27] LABS: MAGNESIUM 1.5 MG/DL (1.5-2.4)
[2023-03-31 10:00] VITALS: BP 126/87
[2023-03-31 15:00] VITALS: BP 105/75
--- NOTE | 2023-03-31 17:59 | NUR ---
Problems reprioritized. Patient report given, questions answered & plan of care reviewed with Aysha DEL RIO.
[2023-03-31 18:00] VITALS: BP 115/60
--- NOTE | 2023-03-31 18:14 | NUR ---
Patient in room PCU 3012. I have received report from Callie DEL RIO and had the opportunity to ask questions and assume patient care.
--- NOTE | 2023-03-31 20:30 | NUR ---
BUNGY JUMP MASTER documentation: I have reviewed and agree with all interventions, assessments performed and documented by LASHAUN HAWK LVN.
[2023-03-31] MEDS ORDERED: atorvastatin 20mg tablet PO SCH (21:00)
[2023-03-31] MEDS ORDERED: traZODone 50mg tablet PO SCH (21:00)
[2023-03-31 22:00] VITALS: BP 95/45
[2023-04-01 02:00] VITALS: BP 104/57
[2023-04-01 06:17] LABS: BASOPHILS % (AUTO) 0.6 % (0-1); EOSINOPHILS # (AUTO) 0.2 X10'3 (0-0.9); EOSINOPHILS % (AUTO) 2.5 % (0-6); HEMATOCRIT 41.1 % (42.0-52.0); HEMOGLOBIN 13.5 g/dl (14.0-17.9); LYMPHOCYTES # (AUTO) 1.3 X10'3 (1.1-4.8); LYMPHOCYTES % (AUTO) 20.9 % (21-51); MEAN CORPUSCULAR HEMOGLOBIN 28.7 PG (27.0-31.0); MEAN CORPUSCULAR HGB CONC 32.9 g/dL (33.0-36.5); MEAN CORPUSCULAR VOLUME 87.1 FL (78-98); MEAN PLATELET VOLUME 9.8 FL (7.4-10.4); MONOCYTES # (AUTO) 0.7 X10'3 (0-0.9); MONOCYTES % (AUTO) 11.5 % (2-12); NEUTROPHILS # (AUTO) 3.9 X10'3 (1.8-7.7); NEUTROPHILS % (AUTO) 64.5 % (42-75); PLATELET COUNT 111 X10'3 (140-440); RED BLOOD COUNT 4.72 X10'6 (4.70-6.10); RED CELL DISTRIBUTION WIDTH 17.7 % (11.5-14.5); WHITE BLOOD COUNT 6.1 X10'3 (4.5-11.0)
[2023-04-01 06:27] LABS: ALBUMIN 2.9 G/DL (3.4-5.0); ANION GAP 10 (8-16); BLOOD UREA NITROGEN 19 MG/DL (7-18); BUN/CREATININE RATIO 16.2 (10.0-20.0); CALCIUM 9.3 MG/DL (8.5-10.1); CHLORIDE 103 MMOL/L (99-107); CREATININE 1.17 MG/DL (0.60-1.10); GLUCOSE 149 MG/DL (70-104); POTASSIUM 3.8 MMOL/L (3.5-5.1); SODIUM 139 MMOL/L (135-145); TOTAL CARBON DIOXIDE 26.2 MMOL/L (24-32); eGFR 63 ML/MIN
--- NOTE | 2023-04-01 06:37 | NUR ---
Problems reprioritized. Patient report given, questions answered & plan of care reviewed with Gustavo OROZCO.
[2023-04-01 07:00] VITALS: BP 92/66
[2023-04-01] MEDS: carVEDilol 12.5mg tablet PO SCH (08:00)
[2023-04-01] MEDS: sacubitril/valsartan 24mg-26mg tablet PO SCH (08:00)
[2023-04-01] MEDS: docusate sod 100mg capsule PO SCH (08:00)
[2023-04-01] MEDS: aspirin 81mg, enteric-coated 1 TAB TABLET.DR PO SCH (08:10)
[2023-04-01 08:11] VITALS: BP_SYST 92
[2023-04-01] MEDS: digoxin 250mcg (0.25mg) tablet PO SCH (08:11)
[2023-04-01] MEDS: isosorbide mononitrate 30mg tab.SR.24H PO SCH (08:11)
[2023-04-01] MEDS: spironolactone 25 MG tablet PO SCH (08:11)
[2023-04-01] MEDS: EMPAGLIFLOZIN 10 MG TABLET PO SCH (08:11)
[2023-04-01] MEDS: clopidogrel 75mg tablet PO SCH (08:11)
[2023-04-01] MEDS: apixaban 5mg tablet PO SCH (08:12)
[2023-04-01] MEDS: furosemide 40mg/4ml inj IV SCH (08:12)
[2023-04-01] MEDS ORDERED: ASPI-1071 PO (10:33)
[2023-04-01] MEDS ORDERED: CARV3.12 PO (10:33)
== END 2023-04-01 12:42 | disposition home or self-care (01) | DRG 174 ==
LOC: ER 08:58 → ED HOLD 10:23 → EDBEDREQ 11:13 → PCU 3S 13:35
PROVIDERS: ADMIT Internal Medicine; ATTEND Internal Medicine
PROC: 4A023N7 Measurement of Cardiac Sampling and Pressure, Left Heart, Percutaneous Approach (ICD-10-PCS; principal; 2023-03-30)
PROC: 027035Z Dilation of Coronary Artery, One Artery with Two Drug-eluting Intraluminal Devices, Percutaneous Approach (ICD-10-PCS; 2023-03-30)
PROC: B2111ZZ Fluoroscopy of Multiple Coronary Arteries using Low Osmolar Contrast (ICD-10-PCS; 2023-03-30)
PROC: B2131ZZ Fluoroscopy of Multiple Coronary Artery Bypass Grafts using Low Osmolar Contrast (ICD-10-PCS; 2023-03-30)
DX: I21.4 Non-ST elevation (NSTEMI) myocardial infarction (principal); I50.23 Acute on chronic systolic (congestive) heart failure; I42.9 Cardiomyopathy, unspecified; I25.810 Atherosclerosis of coronary artery bypass graft(s) without angina pectoris; I48.19 Other persistent atrial fibrillation; I11.0 Hypertensive heart disease with heart failure; E78.5 Hyperlipidemia, unspecified; E66.01 Morbid (severe) obesity due to excess calories; J44.9 Chronic obstructive pulmonary disease, unspecified; I25.119 Atherosclerotic heart disease of native coronary artery with unspecified angina pectoris; I25.2 Old myocardial infarction; Z79.01 Long term (current) use of anticoagulants; Z79.02 Long term (current) use of antithrombotics/antiplatelets; Z79.82 Long term (current) use of aspirin; Z79.84 Long term (current) use of oral hypoglycemic drugs; Z79.899 Other long term (current) drug therapy; Z83.3 Family history of diabetes mellitus; Z87.891 Personal history of nicotine dependence; Z88.0 Allergy status to penicillin; Z88.5 Allergy status to narcotic agent; Z88.8 Allergy status to other drugs, medicaments and biological substances; Z68.39 Body mass index [BMI] 39.0-39.9, adult
CPT/HCPCS: 36415; 71045; 80048; 80053; 80162; 83735; 83880; 84100; 84484; 85025; 85730; 87081; 93005; 93306; 93459; 94760; 99152; 99153; 99285; A4615; A6258; C1725; C1751; C1760; C1769; C1874; C1894; C9600; G0378; J0282; J1644; J1940; J2250; J2270; J2370; J3010; J3490; J7030; Q9967